=== PATIENT | female | born 1950 | race Caucasian/White ===

== ENCOUNTER 2019-03-12 06:08 | Inpatient (IN) ==
[2019-03-09 12:08] LABS: Basophils # (Auto) 0 K/mcL (0.0-0.3); Basophils % (Auto) 0.5 % (0.0-2.0); Eosinophils # (Auto) 0.1 K/mcL (0.0-0.7); Eosinophils % (Auto) 1.7 % (0.0-7.0); Granulocytes % (Auto) 60.9 % (38.0-78.0); Hematocrit 40.1 % (36.0-48.0); Hemoglobin 12.9 g/dL (12.0-15.0); Lymphocytes # (Auto) 1.6 K/mcL (1.5-4.8); Lymphocytes % (Auto) 30.4 % (15.5-49.0); Mean Cell Volume 87.6 fL (80.0-100.0); Mean Corpuscular HGB Conc 32.2 g/dL (31.0-36.0); Mean Platelet Volume 10.5 fL (7.4-10.4); Monocytes # (Auto) 0.4 K/mcL (0.1-0.9); Monocytes % (Auto) 6.5 % (1.0-12.0); Platelet Count 202 K/mcL (140-440); RBC 4.58 M/mcL (4.00-5.20); Red Cell Distribution Width 14.5 % (11.5-14.5); WBC 5.4 K/mcL (4.5-11.0)
[2019-03-09 12:16] LABS: Estimated Average Glucose(eAG) 117 mg/dL; Hemoglobin A1C 5.7 % HGB (4.0-6.0); Prealbumin 25.8 mg/dl (20-40)
[2019-03-09 12:22] LABS: ALT/SGPT 23 U/l (0-40); AST/SGOT 21 U/l (0-37); Albumin 4.3 gm/dL (3.2-5.2); Albumin/Globulin Ratio 1.3 (1.0-2.3); Alkaline Phosphatase 143 U/L (39-117); Bilirubin,Total 0.2 mg/dL (0.0-1.0); Blood Urea Nitrogen 14 mg/dl (8-23); C-Reactive Protein < 0.3 mg/dl (0.0-0.8); Calcium 9.4 mg/dl (8.6-10.4); Carbon Dioxide 26 mmol/L (22-30); Chloride 104 mmol/L (96-108); Globulin 3.2 gm/dL (2.2-3.7); Glomerular Filtration Rate 94; Glucose 108 mg/dL (70-105); Potassium 4.4 mmol/L (3.3-5.1); Sodium 140 mmol/L (133-145); Thyroid Stimulating Hormone 2.06 uIU/ml (0.27-5.01)
[~2019-03-12 06:08] MED LIST: BACITRACIN IR SCH; CLINDAMYCIN IR SCH; GENTAMICIN SULFATE IR SCH; VANCOMYCIN 1,000 MG in 0.9 % SODIUM CHLORIDE 250 ML IV SCH; [UNRECOGNIZED DRUG - OTHER] IR SCH; cefTRIAXone 1 GM VIAL IV SCH
[2019-03-12] MEDS ORDERED: LIDOCAINE W/EPI 1% 20 ML VIAL IJ ONE (07:21)
[2019-03-12] MEDS ORDERED: BUPIVACAINE 0.25% 50 ML VIAL IJ ONE (07:21)
[2019-03-12] MEDS ORDERED: NALOXONE HCL 0.4 MG/ML VIAL IV PRN (07:23)
[2019-03-12] MEDS ORDERED: PROMETHAZINE 25 MG/ML VIAL IV PRN (07:23)
[2019-03-12] MEDS ORDERED: diphenhydrAMINE 50 MG/ML VIAL IV PRN (07:23)
[2019-03-12] MEDS ORDERED: IPRATROPIUM/ALBUTEROL 3 ML AMPUL.NEB NEB PRN ×2 (07:23→16:04)
[2019-03-12] MEDS ORDERED: BENZOCAINE/MENTHOL 1 LOZENGE PO PRN (07:23)
[2019-03-12] MEDS ORDERED: ONDANSETRON 4 MG/2 ML VIAL IV PRN ×2 (07:23→16:04)
[2019-03-12] MEDS ORDERED: ACETAMINOPHEN 1,000 MG/100 ML BOTTLE IV ONE (07:23)
[2019-03-12] MEDS ORDERED: LACTATED RINGERS 250 ML IV PRN (07:23)
[2019-03-12] MEDS ORDERED: FLUMAZENIL 0.1 MG/ML ML IV PRN (07:23)
[2019-03-12] MEDS ORDERED: MEPERIDINE 25 MG/ML SYRINGE IV PRN ×2 (07:23→16:04)
[2019-03-12] MEDS ORDERED: LACTATED RINGERS 1,000 ML IV SCH ×2 (07:30→16:15)
[2019-03-12] MEDS ORDERED: ePHEDrine 50 MG/ML AMPUL IV ONE (07:35)
[2019-03-12] MEDS ORDERED: LIDOCAINE HCL/PF 100 MG/5 ML SYRINGE IV ONE ×2 (07:35→15:45)
[2019-03-12] MEDS ORDERED: DEXAMETHASONE 10 MG/ML VIAL IV ONE (07:35)
[2019-03-12] MEDS ORDERED: MIDAZOLAM 5 MG/5 ML VIAL IV ONE (07:35)
[2019-03-12] MEDS ORDERED: ONDANSETRON 4 MG/2 ML VIAL IV ONE ×2 (07:35→15:45)
[2019-03-12] MEDS ORDERED: fentaNYL 100 MCG/2 ML VIAL IV ONE ×2 (07:35→15:45)
[2019-03-12] MEDS ORDERED: PROPOFOL 200 MG/20 ML VIAL IV ONE ×2 (07:35→15:45)
[2019-03-12] MEDS: fentaNYL 100 MCG/2 ML VIAL IV PRN ×6 (08:45→17:10)
[2019-03-12] MEDS ORDERED: oxyCODONE/APAP 5/325MG TABLET PO PRN (09:35)
--- NOTE | 2019-03-12 10:55 | Brief Operative Note ---
Date of procedure: 03/12/19 Pre-op diagnosis: Non healing wound. Right Thigh h/o Melanoma Post-op diagnosis: same Procedure: WIDE EXCISION. Open Packing. Grafts/Implants: No Anesthesia: GLMA Findings: Wound Dimension 15 x 8 x 2.5 CM. Wound base has exposed muscle. Entire wound along with underlying and adjacent involved fascia was excised in toto. Separate biopsies taken from 12, 6, 3 and 9 O'clock positions, AWAIT Final Pathology report. Complications: none Surgeon: Manuel Cyr Estimated blood loss (cc): 20 Specimens Removed/Pathology: other Condition: stable Disposition: observation (Will need extended recovery for observation for bleedi ng and pain management / control.)
[2019-03-12] MEDS ORDERED: KETOROLAC 15 MG/ML VIAL IV PRN ×2 (11:20→20:00)
[2019-03-12] MEDS ORDERED: GLYCOPYRROLATE 0.2 MG/ML VIAL IV ONE (15:45)
[2019-03-12] MEDS ORDERED: MIDAZOLAM 2 MG/2 ML VIAL IV ONE (15:45)
[2019-03-12] MEDS ORDERED: KETAMINE 100 MG/ML ML IV ONE (15:45)
[2019-03-12] MEDS ORDERED: PHENYLEPHRINE 10 MG/ML VIAL IV ONE (15:45)
[2019-03-12] MEDS ORDERED: LORazepam 2 MG/ML VIAL IV PRN (16:04)
--- NOTE | 2019-03-12 16:26 | Brief Operative Note ---
Date of procedure: 03/12/19 Pre-op diagnosis: Post operative bleeding Post-op diagnosis: same Procedure: Wound exploration and suture ligation of bleeders x 2 Grafts/Implants: No Anesthesia: GLMA Findings: Post operative bleeding from wound bed. Arterial bleeding after clots were washed. Suture ligated with 2-0 Vicryl figure of 8 ties x 2, Wound bed covered with Xeroform gauze AND stapled to wound edges. Complications Description: 03/12/19 16:26 Post operative arterial bleeding from wound bed. Reactive bleed from collapsed, retracted bleeders. Surgeon: Manuel Cyr Estimated blood loss (cc): 30 Specimens Removed/Pathology: none sent Condition: stable Disposition: PACU
[2019-03-12 16:58] LABS: POC Blood Urea Nitrogen 11 mg/dl (8-23); POC CO2 23 mmol/L (22-30); POC Calcium, Ionized 1.09 mmol/L (1.16-1.32); POC Chloride 106 mmol/L (96-108); POC Creatinine 0.6 mg/dl (0.6-1.1); POC Glucose, Random 167 mg/dL (70-105); POC Potassium 4.5 mmol/L (3.3-5.1); POC Sodium 138 mmol/L (133-145)
[2019-03-12] MEDS: oxyCODONE/APAP 5/325MG TABLET PO PRN ×3 (18:11→22:59)
[2019-03-12] MEDS ORDERED: ZOLPIDEM 5 MG TABLET PO PRN ×2 (21:00)
[2019-03-12] MEDS: MEPERIDINE 25 MG/ML SYRINGE IV PRN (21:25)
[2019-03-13] MEDS: oxyCODONE/APAP 5/325MG TABLET PO PRN ×5 (03:08→22:50)
[2019-03-13] MEDS ORDERED: CALCIUM CARBONATE 500 MG TAB.CHEW CHEWED PRN (06:52)
[2019-03-13] MEDS ORDERED: ASPIRIN 81 MG TAB.CHEW CHEWED ONE (08:22)
[2019-03-13] MEDS ORDERED: ASPIRIN 81 MG TAB.CHEW ONE (08:26)
[2019-03-13] MEDS ORDERED: NITROGLYCERIN 0.4 MG TAB.SUBL SL ONE (08:26)
[2019-03-13] MEDS ORDERED: 0.9 % SODIUM CHLORIDE 1,000 ML IV SCH ×2 (08:30→11:31)
[2019-03-13] MEDS: NITROGLYCERIN 0.4 MG TAB.SUBL SL PRN ×2 (08:33→09:40)
[2019-03-13] MEDS: MEPERIDINE 25 MG/ML SYRINGE IV PRN (08:33)
[2019-03-13] MEDS ORDERED: ONDANSETRON 4 MG/2 ML VIAL IV PRN ×2 (08:40→11:31)
--- NOTE | 2019-03-13 08:42 | Operative Note ---
DATE OF OPERATION: 03/12/2019 PREOPERATIVE DIAGNOSES: Nonhealing wound, right thigh. Patient with history of malignant melanoma. Past open biopsy in an outside facility. POSTOPERATIVE DIAGNOSES: Nonhealing wound, right thigh. Patient with history of malignant melanoma. Past open biopsy in an outside facility. OPERATION: Wide excision. Open packing of the wound. SURGEON: Manuel Cyr M.D. WOUND DIMENSIONS: 15 x 8 x 2.5 cm. Wound base has exposed muscle. FINDINGS: This biopsy site was at the tip of a large mass, approximately 2.5 to 3 cm, which was densely adherent to the underlying fascia and muscle. It was part organized blood clots and dark black spot suspicious of malignant melanoma. There were additional satellite areas also at 12, 6, 9 and 3 o'clock. ANESTHESIA: General laryngeal mask airway. ESTIMATED BLOOD LOSS: About 20 mL. PROCEDURE NOTE: After obtaining informed consent, patient was taken to the operating room and anesthetized uneventfully in supine position using laryngeal mask airway. Intravenous antibiotics given. Timeout called. Right lower extremity was widely cleaned, prepped and draped in the standard fashion. Preoperative photographs taken. Local anesthetic 0.25% Marcaine with epinephrine was injected widely around and under the area in question. Elliptical incision was made. Sharp dissection was carried out through the skin and subcutaneous tissues. A marking suture was placed at 12 o'clock to orient the pathologist with the specimen. Sharp dissection was carried out with cutting electrocoagulation Bovie from the skin down to the underlying viable deep fascia. The entire mass was dissected from the underlying fascia from this point onwards with electrocoagulation Bovie or Lanier scissors. Care was taken to leave the base of the mass attached to the fascia and muscle, and this dissection was carried out with scissors. Hemostasis was achieved with electrocoagulation Bovie and marking sutures were placed approximating the muscle fascia and the overlying skin at four corners. Hemostasis appeared to be satisfactory. We placed a large Xeroform gauze and reinforced this with a bolster gauze pieces. This was retained in place with Kerlix bandage, Coban and Mike bandages respectively. Estimated blood loss was about 20 mL. Count of swabs, instruments and needles was reported to be correct. She recovered from anesthesia uneventfully. Final pathology report is awaited. Intraoperatively, I discussed the findings with the pathologist. It was felt that given the diagnosis of malignant melanoma, it is best to wait for the permanent section reports rather than frozen section. The patient awakened from anesthesia and was taken to RR in stable condition. VD:jose Job ID: [id number] Doc ID: [id number] Manuel Cyr MD
[2019-03-13] MEDS ORDERED: ONDANSETRON 4 MG/2 ML VIAL ONE (08:44)
--- NOTE | 2019-03-13 08:59 | Operative Note ---
DATE OF OPERATION: 03/12/2019 PREOPERATIVE DIAGNOSIS: Postoperative bleeding from the wound bed. Not responding to change of dressings and reinforcing base of the wound with additional ABD pad and compression. POSTOPERATIVE DIAGNOSIS: Postoperative bleeding from the wound bed. Not responding to or change of dressings and reinforcing base of the wound with additional ABD pad and compression. OPERATION: Reexploration of the wound. Two areas of arterial bleeding under the clots were identified and suture ligated with [id number] ties x2. SURGEON: Manuel Cyr M.D. ANESTHESIA: General laryngeal mask. ANESTHESIOLOGIST: Ramona Mayes M.D. PROCEDURE: This patient had undergone excision of a biopsy site mass adherent to the fascia. The patient has a history of malignant melanoma. Postoperatively, she had bleeding which could not be controlled with a change of dressing and reinforcement with additional pressure dressings. After obtaining informed consent and discussion of the indication, she was taken to the operating room and anesthetized uneventfully in supine position using laryngeal mask airway. Timeout was called. The previous dressings were taken down. The area was widely cleaned, prepped and draped in the standard fashion. Careful irrigation of the wound bed was carried out multiple times with normal saline. The clots were washed away. There were two areas of retracted small arteries under these clots which appeared to be the source of bleeding. Bright red bleeding was coming from these areas. These were suture ligated with [id number] 2-0 Vicryl x2. This controlled the bleeding. The wound was cleaned again and redressed with Xeroform gauze stapled against the edges with casandra and reinforced with bolster packing, ABD gauze, Kerlix bandage, Coban and Mike wrap respectively. Blood loss was about 30 mL. Count of swabs, instruments and needles was reported to be correct. VD:jose Job ID: [id number] Doc ID: [id number] Manuel Cyr MD
[2019-03-13 09:16] LABS: Basophils # (Auto) 0 K/mcL (0.0-0.3); Basophils % (Auto) 0.2 % (0.0-2.0); Eosinophils # (Auto) 0 K/mcL (0.0-0.7); Eosinophils % (Auto) 0.2 % (0.0-7.0); Granulocytes % (Auto) 67.1 % (38.0-78.0); Hematocrit 32.1 % (36.0-48.0); Hemoglobin 10.3 g/dL (12.0-15.0); Lymphocytes # (Auto) 1.8 K/mcL (1.5-4.8); Lymphocytes % (Auto) 25.1 % (15.5-49.0); Mean Corpuscular HGB Conc 32.2 g/dL (31.0-36.0); Mean Platelet Volume 9.3 fL (7.4-10.4); Monocytes # (Auto) 0.5 K/mcL (0.1-0.9); Monocytes % (Auto) 7.4 % (1.0-12.0); Platelet Count 186 K/mcL (140-440); RBC 3.68 M/mcL (4.00-5.20); Red Cell Distribution Width 14.4 % (11.5-14.5); WBC 7.2 K/mcL (4.5-11.0)
[2019-03-13 09:43] LABS: ALT/SGPT 19 U/l (0-40); AST/SGOT 17 U/l (0-37); Albumin 3.5 gm/dL (3.2-5.2); Albumin/Globulin Ratio 1.7 (1.0-2.3); Alkaline Phosphatase 107 U/L (39-117); Bilirubin,Total 0.2 mg/dL (0.0-1.0); Blood Urea Nitrogen 12 mg/dl (8-23); Calcium 8.5 mg/dl (8.6-10.4); Carbon Dioxide 24 mmol/L (22-30); Chloride 103 mmol/L (96-108); Creatine Kinase 79 IU/L (24-170); Creatine Kinase MB 1.3 ng/ml (0-2.9); Globulin 2.1 gm/dL (2.2-3.7); Glomerular Filtration Rate 94; Glucose 121 mg/dL (70-105); Potassium 4.3 mmol/L (3.3-5.1); Sodium 138 mmol/L (133-145)
[2019-03-13] MEDS ORDERED: PHENobarb/HYOSCY/ATROPINE/SCOP 1 DOSE BOTTLE PO ONE (10:01)
[2019-03-13] MEDS ORDERED: IOPAMIDOL 100 ML BOTTLE IV ONE (10:06)
--- NOTE | 2019-03-13 11:00 | Internal Med History&Physical ---
Medical - H&P: HPI Patient information: Note initiated : 03/13/19 at 10:54 am Service Date, if different from initiated Date: [] Patient: Karla Mcconnell a 69 y/o F admitted on 03/13/19 for Wide Excision Right Anterior Thigh Wound. Chief Complaint: [] History of present illness: Ms. Mcconnell is a 69 year old F Who presented for elective wide excision of a nonhealing wound history of melanoma. On the a wide excision was made and biopsies were obtained. She did have some postoperative bleeding and wound was explored again and wound was washed out and dressings placed. States she had described a chest pressure and code white was obtained. EKG and first troponin unremarkable. She received several nitros with relief in pain however pain has returned. See the note per nurse. Patient described discomfort as elephant sitting on her chest but denied pain. I will speak with the patient states that she was just laying in her bed and when the nurse came into check vitals patient said she felt like she had elep hant sitting on her chest. Symptoms have significantly subsided but she feels never quite gone away but very minimal at this time. Again she describes a pressure but not painful and it encompasses the entire anterior chest and does not radiate. She does states little worse with a deep breath or cough. Denies anything making it worse or better. Denies any change in symptoms with position. Does have history of pyrosis but she says it does not feel like that. She did have some chest pain several years ago and was worked up by her primary care provider Dr. Dubose which was unremarkable. 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 Regarding her cancer. She had a first biopsy in December which showed melanoma and then she had excision in the office by subsequently later she developed infection and was given some oral antibiotics from the ED. And then saw Dr. garvin in the cancer center which eventually led to her getting the surgical excision here. Review of Systems: She does have some headaches and some chills. Denies nausea/vomiting/abdominal pain/cough/dyspnea/diarrhea. Remaining 10 point review of system reviewed negative Medical - H&P: H Medical history: Medical History (Last Updated 02/05/19 @ 21:27 by Manoj Dumont DO) Hypertension/hyperlipidemia GERD Cervical cancer Past surgical history: Hysterectomy from cervical cancer Bilateral eye lens surgery Cholecystectomy Carpal tunnel release Social she: Patient quit smoking 17 years ago drinks alcohol socially lives at home with her Medical - H&P: Meds Home Medications Medication Instructions Recorded Confirmed Type Atorvastatin [Lipitor] 10 mg PO HS 03/02/19 03/09/19 History Famotidine [Pepcid] 20 mg PO BID 03/02/19 03/09/19 History Losartan [Cozaar] 50 mg PO BID 03/02/19 03/12/19 History Allergies Allergy/AdvReac Type Severity Reaction Status Date / Time No Known Drug Allergies Allergy Verified 03/09/19 10:13 Medical - H&P: Exam - Constitutional Vitals: Temp Pulse Resp BP Pulse Ox 97.3 F 71 18 115/61 96 03/13/19 08:15 03/13/19 09:41 03/13/19 09:41 03/13/19 09:41 03/13/19 09:41 Exam: General: Alert, Awake, No acute Distress Eyes/N/T: EOMI, PERRL Head/Neck: neck supple, normocephalic atraumatic CV: RRR, 1/6SM, normal s1/s2 Pulm: Clear b/l, no wheezing/rhonchi/rales Abd: soft, nontender, +BS x4 Ext: no clubbing/cyanosis/edema Neuro: Alert, no focal deficits, moves all extremities, Skin: warm/dry Medical - H&P: Reslt - Labs CBC & Chem 7: 03/13/19 08:20 03/13/19 08:20 Labs: Short CBC 03/13/19 Range/Units 08:20 WBC 7.2 (4.5-11.0) K/mcL Hgb 10.3 L (12.0-15.0) g/dL Hct 32.1 L (36.0-48.0) % Plt Count 186 (140-440) K/mcL BMP 03/13/19 08:20 Sodium 138 Potassium 4.3 Chloride 103 Carbon Dioxide 24 BUN 12 Creatinine 0.6 Glucose 121 H Calcium 8.5 L Cardiac Enzymes 03/13/19 03/13/19 Range/Units 08:20 08:20 Total Creatine Kinase 79 (24-170) IU/L CK-MB (CK-2) 1.3 (0-2.9) ng/ml Troponin T < 0.01 (0-0.03) ng/ml Liver Function 03/13/19 Range/Units 08:20 Total Bilirubin 0.2 (0.0-1.0) mg/dL AST 17 (0-37) U/l ALT 19 (0-40) U/l Alkaline Phosphatase 107 (39-117) U/L Albumin 3.5 (3.2-5.2) gm/dL Medical - H&P: A/P - Narrative A/P Narrative: A: *Chest pressure: suspected GI -EKG remarkable, -trop x1 neg *Status post wide excision of skin lesion with history of melanoma *HTN/HLD: *GERD: * P: -tele monitorin -serial trop -GI cocktail -restart home pepcid -cont home meds -ppx: SCD
[2019-03-13] MEDS ORDERED: POLYETHYLENE GLYCOL 3350 17 GM PACKET PO PRN (11:31)
[2019-03-13] MEDS ORDERED: MAGNESIUM SULFATE 2 GM/50 ML BAG IV PRN (11:31)
[2019-03-13] MEDS ORDERED: LACTULOSE 20 GM/30 ML ORAL.SOL PO PRN (11:31)
[2019-03-13] MEDS ORDERED: MAG HYDROX/AL HYDROX/SIMETH 30 ML ORAL.SUSP PO PRN (11:31)
[2019-03-13] MEDS ORDERED: POTASSIUM CHLORIDE 40 MEQ in DEXTROSE 5% IN WATER 500 ML IV PRN (11:31)
[2019-03-13] MEDS ORDERED: IPRATROPIUM/ALBUTEROL 3 ML AMPUL.NEB NEB PRN (11:31)
[2019-03-13] MEDS ORDERED: POTASSIUM CHLORIDE 20 MEQ TABLET PO PRN ×2 (11:31)
[2019-03-13] MEDS ORDERED: ZOLPIDEM 5 MG TABLET PO PRN (11:31)
[2019-03-13] MEDS ORDERED: NITROGLYCERIN 0.4 MG TAB.SUBL SL PRN (11:31)
[2019-03-13] MEDS ORDERED: SENNOSIDES 1 TABLET PO PRN (11:31)
--- NOTE | 2019-03-13 11:35 | XRay Report ---
CLINICAL INFORMATION: chest pressure COMPARISON: 09/13/2016 FINDINGS: Heart size, mediastinum and pulmonary vessels are normal. There is subsegmental atelectasis in the mid lungs. No effusions. IMPRESSION: Subsegmental atelectasis in mid lungs. Interpreted and Authenticated by: Vineet Peck 03/13/19
[2019-03-13] MEDS: FAMOTIDINE 20 MG TABLET PO SCH ×2 (12:00→21:24)
[2019-03-13] MEDS: 0.9 % SODIUM CHLORIDE 10 ML SYRINGE IV SCH ×2 (14:44→21:24)
[2019-03-13] MEDS ORDERED: PANTOPRAZOLE 40 MG VIAL IV ONE (17:26)
--- NOTE | 2019-03-13 17:27 | General Surgery Progress Note ---
Subjective Patient reports: still having pain, other (Patient c/o chest pain this morning with a sense of chest tightness. Code white was called.) Narrative: Note initiated : 03/13/19 at 5:24 pm Service Date, if different from initiated Date: [] Patient: Karla Mcconnell 69 y/o F admitted on 03/13/19 for Wide Excision Right Anterior Thigh Wound. Chief Complaint: [] Objective Temp Pulse Resp BP Pulse Ox 97.8 F 65 14 104/68 94 03/13/19 16:27 03/13/19 15:31 03/13/19 16:27 03/13/19 16:27 03/13/19 16:27 AVSS. Anxious. NOT diaphoretic. Right thigh dressing CDI, Distal extremity PWD. Chest exam was unremarkable. EKG : NSR. Initial cardiac enzymes wer NEG, Some relief with s/l Nitro and mylanta. Patient felt better. later c/o tightness of chest. - Additional Data Intake & Output - Last 24 hours: Intake & Output 03/11/19 03/12/19 03/13/19 03/14/19 05:59 05:59 05:59 05:59 Intake Total 3350 Output Total 575 25 Balance 2775 -25 Weight 155 lb 3.2 oz 155 lb 3.2 oz - Labs 03/13/19 08:20 03/13/19 08:20 Diabetes panel 03/13/19 Range/Units 08:20 Sodium 138 (133-145) mmol/L Potassium 4.3 (3.3-5.1) mmol/L Chloride 103 (96-108) mmol/L Carbon Dioxide 24 (22-30) mmol/L BUN 12 (8-23) mg/dl Creatinine 0.6 (0.6-1.1) mg/dl Glucose 121 H (70-105) mg/dL Calcium 8.5 L (8.6-10.4) mg/dl AST 17 (0-37) U/l ALT 19 (0-40) U/l Alkaline Phosphatase 107 (39-117) U/L Total Protein 5.6 L (5.9-8.4) gm/dL Albumin 3.5 (3.2-5.2) gm/dL Calcium panel 03/13/19 Range/Units 08:20 Calcium 8.5 L (8.6-10.4) mg/dl Albumin 3.5 (3.2-5.2) gm/dL Pituitary panel 03/13/19 Range/Units 08:20 Sodium 138 (133-145) mmol/L Potassium 4.3 (3.3-5.1) mmol/L Chloride 103 (96-108) mmol/L Carbon Dioxide 24 (22-30) mmol/L BUN 12 (8-23) mg/dl Creatinine 0.6 (0.6-1.1) mg/dl Glucose 121 H (70-105) mg/dL Calcium 8.5 L (8.6-10.4) mg/dl Adrenal panel 03/13/19 Range/Units 08:20 Sodium 138 (133-145) mmol/L Potassium 4.3 (3.3-5.1) mmol/L Chloride 103 (96-108) mmol/L Carbon Dioxide 24 (22-30) mmol/L BUN 12 (8-23) mg/dl Creatinine 0.6 (0.6-1.1) mg/dl Glucose 121 H (70-105) mg/dL Calcium 8.5 L (8.6-10.4) mg/dl Total Bilirubin 0.2 (0.0-1.0) mg/dL AST 17 (0-37) U/l ALT 19 (0-40) U/l Alkaline Phosphatase 107 (39-117) U/L Total Protein 5.6 L (5.9-8.4) gm/dL Albumin 3.5 (3.2-5.2) gm/dL Assessment and Plan - Narrative A/P Narrative: Assessment: No further bleeding since reexploration last night. CHEST PAIN. Evaluation and treatment in progress. Plan: D/C Patient from Extended recovery status AND Change Status to INPATIENT under care of Hospitalist Physician. I am following patient from wound care point of view. - Time Spent With Patient Total time spent is greater than 50% in coordination of care (as documented) at patient's floor/unit and/or counseling patient: Greater than 35 minutes (Saw patient several times during the day. Met with family members multiple times.)
[2019-03-13] MEDS: PANTOPRAZOLE 40 MG VIAL IV SCH (17:36)
[2019-03-13 18:19] LABS: Creatine Kinase MB 1.2 ng/ml (0-2.9); Myoglobin 25 ng/ml (25-58)
--- NOTE | 2019-03-13 18:21 | Cat Scan Report ---
CLINICAL INFORMATION: Chest pain COMPARISON: Noncontrast chest CT less than three weeks (02/23/2019) TECHNIQUE: 80 cc of Isovue-300 were injected intravenously. Using SmartPrep to maximize pulmonary artery opacification, 2.5 mm helical slices were obtained from the lung apices through the lung bases. Following reconstruction, 2.5 mm sagittal, coronal, and axial reformations were processed. The exam was reviewed at mediastinal, lung, and bone windows. The exam was performed using radiation dose optimization techniques including, but not limited to, automated exposure control, adjustment of the mA and/or kV according to patient size and use of iterative reconstruction technique. FINDINGS: Mediastinal windows show the pulmonary arteries are well opacified without evidence of embolus. Thoracic aorta is normal diameter demonstrating mild diffuse atherosclerotic disease.. There are no abnormally enlarged lymph nodes in the mediastinal hilar or axillary regions. Heart is normal in size with minimal calcific/fibrotic atherosclerotic plaque in the visualized coronary arteries. Esophagus is unremarkable. Thyroid is normal. Pulmonary parenchymal windows show moderate patchy infiltrates throughout both lower lobes, right middle lobe and the posterior upper lobes which are new from the CT less than three weeks prior. Findings suspicious for aspiration pneumonia. There are no effusions. The 4 mm nodule in the lateral basilar segment of the left lower lobe, described on recent CT, is no longer apparent.. Bones and soft tissues of the chest wall are normal IMPRESSION: 1. No evidence of pulmonary embolus - pulmonary arteries are normal. 2. New moderate patchy infiltrates throughout both lower lobes with smaller patchy infiltrates in the posterior upper, right middle lobe and lingula. There is suspicious for aspiration pneumonia. 3. 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
[2019-03-13] MEDS ORDERED: ATORVASTATIN 20 MG TABLET PO SCH (21:00)
[2019-03-13] MEDS: CALCIUM CARBONATE 500 MG TAB.CHEW CHEWED PRN (21:08)
[2019-03-13] MEDS ORDERED: BENZOCAINE/MENTHOL 1 LOZENGE PO PRN (21:20)
[2019-03-13] MEDS: PIPERACILLIN SODIUM/TAZOBACTAM 3.375 GM in DEXTROSE 5% IN WATER 50 ML IV SCH (21:24)
[2019-03-13] MEDS: DOCUSATE SODIUM 100 MG CAPSULE PO SCH (21:24)
[2019-03-13] MEDS ORDERED: BENZOCAINE/MENTHOL 1 LOZENGE PO ONE (21:25)
[2019-03-13] MEDS: ONDANSETRON 4 MG/2 ML VIAL IV PRN (22:59)
[2019-03-14] MEDS: PIPERACILLIN SODIUM/TAZOBACTAM 3.375 GM in DEXTROSE 5% IN WATER 50 ML IV SCH ×5 (00:53→23:41)
[2019-03-14] MEDS: oxyCODONE/APAP 5/325MG TABLET PO PRN ×3 (03:26→19:29)
[2019-03-14] MEDS: 0.9 % SODIUM CHLORIDE 10 ML SYRINGE IV SCH ×3 (05:54→22:23)
[2019-03-14 06:26] LABS: Basophils # (Auto) 0 K/mcL (0.0-0.3); Basophils % (Auto) 0.4 % (0.0-2.0); Eosinophils # (Auto) 0.1 K/mcL (0.0-0.7); Eosinophils % (Auto) 1.5 % (0.0-7.0); Granulocytes % (Auto) 58.2 % (38.0-78.0); Hemoglobin 10.4 g/dL (12.0-15.0); Lymphocytes % (Auto) 33.8 % (15.5-49.0); Mean Cell Volume 87.8 fL (80.0-100.0); Mean Corpuscular HGB Conc 32.5 g/dL (31.0-36.0); Mean Platelet Volume 10.4 fL (7.4-10.4); Monocytes # (Auto) 0.4 K/mcL (0.1-0.9); Monocytes % (Auto) 6.1 % (1.0-12.0); Platelet Count 168 K/mcL (140-440); RBC 3.64 M/mcL (4.00-5.20); Red Cell Distribution Width 14.6 % (11.5-14.5); WBC 5.8 K/mcL (4.5-11.0)
[2019-03-14 06:38] LABS: ALT/SGPT 19 U/l (0-40); AST/SGOT 18 U/l (0-37); Albumin 3.6 gm/dL (3.2-5.2); Albumin/Globulin Ratio 1.4 (1.0-2.3); Alkaline Phosphatase 106 U/L (39-117); Bilirubin,Direct < 0.2 mg/dL (0.0-0.3); Bilirubin,Total 0.2 mg/dL (0.0-1.0); Blood Urea Nitrogen 13 mg/dl (8-23); Calcium 8.7 mg/dl (8.6-10.4); Carbon Dioxide 26 mmol/L (22-30); Chloride 102 mmol/L (96-108); Gamma Glutamyl Transpeptidase 15 U/L (5-36); Globulin 2.5 gm/dL (2.2-3.7); Glomerular Filtration Rate 90; Glucose 111 mg/dL (70-105); Lactate Dehydrogenase 149 U/L (94-250); Phosphorous 2.9 mg/dL (2.7-4.5); Potassium 4.4 mmol/L (3.3-5.1); Sodium 138 mmol/L (133-145); Triglycerides 97 mg/dl (<150); Uric Acid 3.2 mg/dL (2.5-8.0)
[2019-03-14] MEDS: PANTOPRAZOLE 40 MG VIAL IV SCH ×2 (07:10→17:42)
[2019-03-14] MEDS: ONDANSETRON 4 MG/2 ML VIAL IV PRN ×2 (07:25→13:06)
[2019-03-14] MEDS ORDERED: ASPIRIN 81 MG TAB.CHEW PO SCH (09:00)
[2019-03-14] MEDS ORDERED: LOSARTAN 50 MG TABLET PO SCH (09:00)
[2019-03-14] MEDS: FAMOTIDINE 20 MG TABLET PO SCH ×2 (09:14→21:20)
[2019-03-14] MEDS: DOCUSATE SODIUM 100 MG CAPSULE PO SCH ×2 (09:14→21:19)
[2019-03-14] MEDS: CALCIUM CARBONATE 500 MG TAB.CHEW CHEWED PRN (09:32)
[2019-03-14] MEDS ORDERED: PROMETHAZINE 25 MG/ML VIAL IV PRN ×2 (10:14→11:21)
--- NOTE | 2019-03-14 10:24 | Surgical Pathology Report ---
HISTOLOGY SPECIMEN MICROSCOPIC DIAGNOSIS SPECIMEN A - SKIN, RIGHT ANTERIOR THIGH, EXCISION: -- HEMATOMA WITH ASSOCIATED ACUTE AND CHRONIC INFLAMMATION, GRANULATION TISSUE AND MARKED HEMOSIDERIN DEPOSITION; SEE COMMENT. -- HEMOSIDERIN HIGHLIGHTED BY IRON STAIN (ADEQUATE TECHNICAL CONTROL). -- NO MALIGNANCY IDENTIFIED. SPECIMEN B - SOFT TISSUE, SUBMITTED "DEEP MARGIN 3 O'CLOCK", EXCISION: -- SUBCUTANEOUS SOFT TISSUE WITH FIBROSIS, CHRONIC INFLAMMATION AND HEMOSIDERIN. -- NO MALIGNANCY IDENTIFIED. SPECIMEN C - SOFT TISSUE, SUBMITTED "DEEP MARGIN 6 O'CLOCK", EXCISION: -- SUBCUTANEOUS SOFT TISSUE WITH SPARSE CHRONIC INFLAMMATION AND FIBROSIS. -- NO MALIGNANCY IDENTIFIED. SPECIMEN D - SOFT TISSUE, SUBMITTED "DEEP MARGIN 9 O'CLOCK", EXCISION: -- SUBCUTANEOUS SOFT TISSUE WITH FIBROSIS, CHRONIC INFLAMMATION AND HEMOSIDERIN. -- NO MALIGNANCY IDENTIFIED. SPECIMEN E - SOFT TISSUE, SUBMITTED "DEEP MARGIN 12 O'CLOCK", EXCISION: -- SUBCUTANEOUS SOFT TISSUE WITH FIBROSIS, CHRONIC INFLAMMATION AND HEMOSIDERIN. -- NO MALIGNANCY IDENTIFIED. (DMT:albna) COMMENT: The patient's history of a previously diagnosed melanoma at this site, invasive to a depth of 0.35 mm ([id number]; 12/28/2018) and with negative margins is noted. The current excision specimen has a large dermal and subcutaneous collection of red cells with surrounding acute and chronic inflammation, granulation tissue and abundant hemosiderin deposits. No residual/recurrent melanoma is identified morphologically or by immunohistochemistry. No other malignancy is identified. Additionally submitted margin specimens (Specimens B-E) have similar reactive/inflammatory changes. Overall, the findings are compatible with prior excision site changes associated with a hematoma. MICROSCOPIC DESCRIPTION The following immunohistochemical studies are performed on Block A2: Cell Population: Epithelioid cells with pigment. Pancytokeratin plus: Negative. CD68: Uniformly positive. CD34: Highlights reactive endothelial cells associated with inflammation. Melan-A, SOX-10: Negative. Interpretation: Highlights macrophages and granulation tissue associated with hematoma. No malignant melanoma cells identified. Some of the tests reported here may not have been cleared or approved by the U.[place]. Food and Drug Administration (FDA). However, the FDA has determined that such clearance or approval is not necessary. Pursuant to the requirements of CLIA, this laboratory has established and verified the accuracy and precision of all tests, and additional information about these tests is available upon request. All technical controls are adequate. CLINICAL HISTORY Non-healing right anterior thigh wound. GROSS DESCRIPTION Specimen A: Received in formalin labeled #1 and designated as anterior thigh wound, is a 7.5 x 2.6 x 2.4 cm ellipse of puentes skin. On the skin surface there is a 0.5 x 0.1 x 0.1 cm sunken area which is next to a 0.6 x 0.5 cm pigmented, possibly scabbed area. Subcutaneously there is red-brown possibly hemorrhagic tissue. The margin is inked black. A stitch is present at one end of the specimen; per requisition this is 12 o'clock. The 12-3 border is over-inked blue, the 3-6 border is over-inked orange. Sectioning reveals an approximately 5.6 x 1.2 by up to 1.2 cm cavity filled with viscous red-puentes to clot-like material. Wool Grader sections submitted in four cassettes with the tips in A1 and marketing representative cross sections in A2-A4. Specimen B: Received in formalin labeled #2 and designated 3 o'clock deep margin, are two pink-puentes fragments of tissue. The margin is inked black. The specimens measure 1.9 x 0.9 x 0.5 and 2.3 x 1 x 0.6 cm. Both are serially sectioned with marketing representative sections submitted one cassette. Specimen C: Received in formalin labeled #3 and designated 6 o'clock deep margin, is a 1 x 0.3 x 0.3 cm fragment of sy-puentes fibrous tissue. Totally submitted - one cassette. Specimen D: Received in formalin labeled #4 and designated as deep margin 9 o'clock, is a 2.5 x 0.8 by up to 1 cm sy-puentes fibrous fragment of tissue. Inked black, serially sectioned, totally submitted - one cassette. Specimen E: Received in formalin labeled #5 and designated deep margin 12 o'clock, is a 1.9 x 1.3 x 0.5 cm fibrous pink-puentes tissue fragment. Inked black, serially sectioned, totally submitted - one cassette. (KGW:sln) Electronically Signed by: James Dillard M.D.
--- NOTE | 2019-03-14 10:28 | Internal Med Progress Note ---
Medical - PN: Subj Patient information: Note initiated : 03/14/19 at 10:26 am Service Date, if different from initiated Date: [] Patient: Karla Mcconnell a 69 y/o F admitted on 03/13/19 for Wide Excision Right Anterior Thigh Wound. Chief Complaint: [] Interval history: Ms. Mcconnell is a 69 year old F Who presented for elective wide excision of a nonhealing wound history of melanoma. On the a wide excision was made and biopsies were obtained. She did have some postoperative bleeding and wound was explored again and wound was washed out and dressings placed. States she had described a chest pressure and code white was obtained. EKG and first troponin unremarkable. She received several nitros with relief in pain however pain has returned. See the note per nurse. Patient described discomfort as elephant sitting on her chest but denied pain. I will speak with the patient states that she was just laying in her bed and when the nurse came into check vitals patient said she felt like she had elephant sitting on her chest. Symptoms have significantly subsided but she feels never quite gone away but very minimal at this time. Again she describes a pressure but not painful and it encompasses the entire a nterior chest and does not radiate. She does states little worse with a deep breath or cough. Denies anything making it worse or better. Denies any change in symptoms with position. Does have history of pyrosis but she says it does not feel like that. She did have some chest pain several years ago and was worked up by her primary care provider Dr. Dubose which was unremarkable. 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 Regarding her cancer. She had a first biopsy in December which showed melanoma and then she had excision in the office by subsequently later she developed infection and was given some oral antibiotics from the ED. And then saw Dr. garvin in the cancer center which eventually led to her getting the surgical excision here. Patient seen examined, pt has no CP, no events on tele, trop neg CTA done last night shows patient has aspiration pneumonia. STarted on zosyn. BC sent Pt has history of dysphagia,solid foods getting stuck in mid chest, and going down slowly or coming back up, this has been going on for 3 yrs and she has been reluctant to have it checked out. she agrees for evaluation now. Will consult GI for EGD Pertinent ROS: Denies headache, dizziness Denies chest pain, palpitations Denies cough or shortness of breath Denies abdominal pain, prseent nausea, no vomiting. - Constitutional Vitals: Vital Signs Temp Pulse Resp BP Pulse Ox 97.4 F 64 16 128/66 97 03/14/19 07:00 03/14/19 07:00 03/14/19 07:00 03/14/19 07:00 03/14/19 07:00 Period Temp Pulse Resp BP Sys/Garcia Pulse Ox Last 24 Hr 97.0 F-98.2 F 61-74 14-20 104-132/53-90 92-98 Intake and Output 03/13/19 03/14/19 03/14/19 21:59 05:59 13:59 Intake Total 50 450 50 Output Total 500 Balance 50 -50 50 Weight 159 lb Intake & Output: Intake & Output 03/13/19 03/14/19 03/14/19 21:59 05:59 13:59 Intake Total 50 450 50 Output Total 500 Balance 50 -50 50 Weight 159 lb Intake: IV 50 50 50 Zosyn 3.375 gm In Dextrose 5% 50 50 50 in Water 50 ml @ 100 mls/hr IV Q6H [facility] Rx#:[id number] Oral 400 Output: Void Amount 500 Other: Urine Color Dark Yellow Exam: Constitutional; Afebrile, cooperative, alert, not in distress. Respiratory system: Air Entry equal on both sides, No crackles or wheezing, no rhonchi. CVS- Rate rhythm regular, S1,S2 heard, no gallop, no rub. Abdomen- Soft nontender abdomen, no organomegaly, no tenderness, no guarding or rigidity, [employer]IAN- AOOx3, moving all extremities, no gross focal deficit noted. Medical - PN: Obj Da - Labs CBC & Chem 7: 03/14/19 03:24 03/14/19 03:24 Labs: Abnormal Lab Results 03/14/19 03/14/19 03/13/19 03:24 03:24 08:20 RBC 3.64 L Hgb 10.4 L Hct 32.0 L POC Hct RDW 14.6 H Glucose 111 H 121 H POC Glucose Calcium 8.5 L POC WB Ioniz Calcium Total Protein 5.6 L Globulin 2.1 L 03/13/19 03/12/19 08:20 16:48 RBC 3.68 L Hgb 10.3 L Hct 32.1 L POC Hct 35.0 L RDW Glucose POC Glucose 167 H Calcium POC WB Ioniz Calcium 1.09 L Total Protein Globulin Meds: Medications Al Hydrox/Mg Hydrox/Simethicone (Maalox) 30 ml PO Q4-6HP PRN PRN Reason: Dyspepsia Last Admin: 03/13/19 21:06 Dose: 30 ml Documented by: Albuterol/Ipratropium (Duoneb) 3 ml NEB Q4HP PRN PRN Reason: Shortness Of Breath Aspirin (Aspirin) 81 mg PO DAILY [facility] Last Admin: 03/14/19 09:14 Dose: 81 mg Documented by: Atorvastatin Calcium (Lipitor) 10 mg PO HS [facility] Last Admin: 03/13/19 21:24 Dose: 10 mg Documented by: Calcium Carbonate/Glycine (Tums) 1,000 mg CHEWED Q4HP PRN PRN Reason: Dyspepsia Last Admin: 03/14/19 09:32 Dose: 1,000 mg Documented by: Docusate Sodium (Colace) 100 mg PO BID [facility] Last Admin: 03/14/19 09:14 Dose: 100 mg Documented by: Famotidine (Pepcid) 20 mg PO BID [facility] Last Admin: 03/14/19 09:14 Dose: 20 mg Documented by: Sodium Chloride (Sodium Chloride 0.9%) 1,000 mls @ 0 mls/hr IV .Q0M [facility] Potassium Chloride 40 meq/ (Dextrose) 520 mls @ 130 mls/hr IV UD PRN PRN Reason: Potassium < 3 Magnesium Sulfate (Magnesium Sulfate) 2 gm in 50 mls @ 50 mls/hr IV UD PRN PRN Reason: Magnesium </= 1.6 Piperacillin Sod/Tazobactam (Sod 3.375 gm/ Dextrose) 50 mls @ 100 mls/hr IV Q6H [facility]; Protocol Last Infusion: 03/14/19 06:45 Dose: Infused Documented by: Lactulose (Cephulac) 10 gm PO DAILYP PRN PRN Reason: Constipation Losartan Potassium (Cozaar) 50 mg PO BID [facility] Last Admin: 03/14/19 09:14 Dose: 50 mg Documented by: Morphine Sulfate (Morphine) 0 mg IV Q3HP PRN PRN Reason: Pain Last Admin: 03/13/19 18:51 Dose: 2 mg Documented by: Nitroglycerin (Nitrostat) 0.4 mg SL Q5M PRN PRN Reason: Chest Pain Last Admin: 03/13/19 17:17 Dose: 0.4 mg Documented by: Ondansetron HCl (Zofran) 4 mg IV Q6HP PRN PRN Reason: Nausea And Vomiting Last Admin: 03/14/19 07:25 Dose: 4 mg Documented by: Oxycodone/Acetaminophen (Percocet 5-325 Mg) 1 - 2 tab PO Q4HP PRN PRN Reason: PAIN LEVEL 3-6 Last Admin: 03/14/19 09:32 Dose: 2 tab Documented by: Pantoprazole Sodium (Protonix) 40 mg IV BIDAC [facility] Last Admin: 03/14/19 07:10 Dose: 40 mg Documented by: Polyethylene Glycol (Miralax) 17 gm PO DAILYP PRN PRN Reason: Constipation Potassium Chloride (Kdur) 40 meq PO UD PRN PRN Reason: Potssium is 3-3.5 Potassium Chloride (Kdur) 40 meq PO UD PRN PRN Reason: Potassium < 3 Promethazine HCl (Phenergan) 12.5 mg IV Q4HP PRN PRN Reason: Nausea And Vomiting Senna (Senokot) 2 tab PO HSP PRN PRN Reason: Constipation Sodium Chloride (Saline Flush) 10 ml IV Q8 [facility] Last Admin: 03/14/19 05:54 Dose: 10 ml Documented by: Throat Lozenges (Cepacol) 1 lozenge PO PRN PRN PRN Reason: Sore Throat Zolpidem Tartrate (Ambien) 5 mg PO HSP PRN PRN Reason: Insomnia Last Admin: 03/13/19 21:23 Dose: 5 mg Documented by: Medical - PN: A/P - Time Spent With Patient Total time spent is greater than 50% in coordination of care (as documented) at patient's floor/unit and/or counseling patient: - Narrative A/P Narrative: A: *Chest pressure: ekg neg, trop neg *Aspiration pneumonia *acute hypoxic respiratory failure *Status post wide excision of skin lesion with history of melanoma *HTN/HLD: *GERD: P: Patient has chr dysphagia, likely leading to aspiration pneumointis. on IV PPI GI consulted for EGD, pt agreeable for same IV zosyn for aspiration pna oxygen to supplement osat > 90 incentive spirometery, wean off oxygen as tolerated zofran/Phenergan for nausea Wound care following for the wide excision biopsy. DVT hep sq Medical - PN: Qual - VTE Deep Vein Thrombosis/Pulmonary Embolism Present on Admission: No
[2019-03-14] MEDS ORDERED: IPRATROPIUM/ALBUTEROL 3 ML AMPUL.NEB NEB PRN (11:21)
[2019-03-14] MEDS ORDERED: NITROGLYCERIN 0.4 MG TAB.SUBL SL PRN (11:21)
[2019-03-14] MEDS ORDERED: POTASSIUM CHLORIDE 40 MEQ in DEXTROSE 5% IN WATER 500 ML IV PRN (11:21)
[2019-03-14] MEDS ORDERED: POLYETHYLENE GLYCOL 3350 17 GM PACKET PO PRN (11:21)
[2019-03-14] MEDS ORDERED: LACTULOSE 20 GM/30 ML ORAL.SOL PO PRN (11:21)
[2019-03-14] MEDS ORDERED: POTASSIUM CHLORIDE 20 MEQ TABLET PO PRN ×2 (11:21)
[2019-03-14] MEDS ORDERED: BENZOCAINE/MENTHOL 1 LOZENGE PO PRN (11:21)
[2019-03-14] MEDS ORDERED: CALCIUM CARBONATE 500 MG TAB.CHEW CHEWED PRN (11:21)
[2019-03-14] MEDS ORDERED: MAGNESIUM SULFATE 2 GM/50 ML BAG IV PRN (11:21)
[2019-03-14] MEDS ORDERED: 0.9 % SODIUM CHLORIDE 1,000 ML IV SCH (11:21)
[2019-03-14] MEDS ORDERED: MAG HYDROX/AL HYDROX/SIMETH 30 ML ORAL.SUSP PO PRN (11:21)
--- NOTE | 2019-03-14 12:22 | General Surgery Progress Note ---
Subjective Narrative: Note initiated : 03/14/19 at 12:20 pm Service Date, if different from initiated Date: [] Patient: Karla Mcconnell 69 y/o F admitted on 03/14/19 for Wide Excision Right Anterior Thigh Wound. Chief Complaint: [] Patient seen along with Michelle RN, In Patient wound care nurse and with her Jose in the room. Events of yesterday noted. Patient is calm and not anxious at this time. Using IS up to 1500 . Dressings Right thigh CDI. Objective Temp Pulse Resp BP Pulse Ox 97.4 F 67 16 131/71 97 03/14/19 11:00 03/14/19 11:00 03/14/19 11:00 03/14/19 11:00 03/14/19 11:00 AVSS. No changes DHRUV. Dressings Rt. Thigh CDI. CT Chest findings noted. Dysphagia: GI input awaited. FINAL PATHOLOGY: Negative for residual malignancy. Organized hematoma with hemosiderin. Patient has NOT gotten OOB yet. - Additional Data Intake & Output - Last 24 hours: Intake & Output 03/12/19 03/13/19 03/14/19 03/15/19 05:59 05:59 05:59 05:59 Intake Total 3350 850 50 Output Total 575 525 Balance 2775 325 50 Weight 155 lb 3.2 oz 159 lb - Labs 03/14/19 03:24 03/14/19 03:24 Diabetes panel 03/14/19 Range/Units 03:24 Sodium 138 (133-145) mmol/L Potassium 4.4 (3.3-5.1) mmol/L Chloride 102 (96-108) mmol/L Carbon Dioxide 26 (22-30) mmol/L BUN 13 (8-23) mg/dl Creatinine 0.7 (0.6-1.1) mg/dl Glucose 111 H (70-105) mg/dL Calcium 8.7 (8.6-10.4) mg/dl AST 18 (0-37) U/l ALT 19 (0-40) U/l Alkaline Phosphatase 106 (39-117) U/L Total Protein 6.1 (5.9-8.4) gm/dL Albumin 3.6 (3.2-5.2) gm/dL Triglycerides 97 (<150) mg/dl Calcium panel 05/22/19 Range/Units 03:24 Calcium 8.7 (8.6-10.4) mg/dl Phosphorus 2.9 (2.7-4.5) mg/dL Albumin 3.6 (3.2-5.2) gm/dL Pituitary panel 03/14/19 Range/Units 03:24 Sodium 138 (133-145) mmol/L Potassium 4.4 (3.3-5.1) mmol/L Chloride 102 (96-108) mmol/L Carbon Dioxide 26 (22-30) mmol/L BUN 13 (8-23) mg/dl Creatinine 0.7 (0.6-1.1) mg/dl Glucose 111 H (70-105) mg/dL Calcium 8.7 (8.6-10.4) mg/dl Adrenal panel 03/14/19 Range/Units 03:24 Sodium 138 (133-145) mmol/L Potassium 4.4 (3.3-5.1) mmol/L Chloride 102 (96-108) mmol/L Carbon Dioxide 26 (22-30) mmol/L BUN 13 (8-23) mg/dl Creatinine 0.7 (0.6-1.1) mg/dl Glucose 111 H (70-105) mg/dL Calcium 8.7 (8.6-10.4) mg/dl Total Bilirubin 0.2 (0.0-1.0) mg/dL AST 18 (0-37) U/l ALT 19 (0-40) U/l Alkaline Phosphatase 106 (39-117) U/L Total Protein 6.1 (5.9-8.4) gm/dL Albumin 3.6 (3.2-5.2) gm/dL Assessment and Plan - Narrative A/P Narrative: Assessment: s/p Reexploration of Rt thigh for post operative bleeding. Agueda ent STABLE and progressing well. Pneumonia vs Atelectasis. On IV antibiotics and Incentive Spirometry treatment. Able to tolerate PO liquids and soft food. Awaits GI evaluation for dysphagia Plan: OOB and ambulate with crutches or with assistance from physical therapy. Will change dressing tomorrow. Discharge planing when stable from medical point of view. - Time Spent With Patient Total time spent is greater than 50% in coordination of care (as documented) at patient's floor/unit and/or counseling patient: 15 - 24 minutes
[2019-03-14] MEDS ORDERED: LORazepam 2 MG/ML VIAL IV ONE (13:42)
--- NOTE | 2019-03-14 13:51 | Internal Medicine Consult Note ---
Medical - CN: HPI - Data of Consult Patient: new to practice Consult date: 03/14/19 Requesting physician: Cayla Dove Primary Care Provider: Lamar Jenkins Family Provider: Aleksandr Patterson - Consult Narrative Reason for consult: Dysphagia, chest pain History of present illness: Ms. Mcconnell is a 69 year old F hospitalized for excision of a right leg melanoma who developed sudden onset chest pain, feeling like "15 elephants were sitting on my chest". Subsequent CTA showed aspiration pneumonia and she is feeling no pressure today. She has not had similar symptoms in the past. She also complains of a 2 year history of dysphagia to solids, which she often has to regurgitate despite trying to wash the bolus down with water. She denies any history of dysphagia to liquids alone. She was initially scheduled to see us as an outpatient consultation, but did not return calls to reschedule appointment "because medical procedures make me nervous". She has a long history of reflux that is not controlled on famotidine or Prilosec. She goes through a large bottle of TUMS every 3 days. She complains of the reflux of sour juices. There is no prior history of EGD. She denies any history of atopic disease. Weight has gone up and down without any steady decline. She uses ibuprofen 2 x week for leg pain after melanoma excision. I attempted to reassure her about EGD as she has had colonoscopy in the past. In reviewing her family history, her father and paternal uncle had colon cancer at a young age and her sister and daughter had "uterine' cancer at a young age. Her daughter, who was present at the bedside, has had "80 precancerous polyps rem eugenia". As you know, this suggests Patel syndrome. I have recommended the family consider genetic testing. CC: Santosh Jose All systems: reviewed and no additional remarkable complaints except as stated (as above) Medical - CN: PMH Medical history: Hypertension, hyperlipidemia, GERD. cervical CA. Melanoma. Surgical history: Complete hysterectomy, cataracts, cholecystectomy, carpal tunnel release Social history: . 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[employer] Smoking status: Former smoker Alcohol use: occasionally (used to drink daily, now estimates 2 a week, but daughter thinks more frequent use is going on) Medical - CN: Meds Home Medications Medication Instructions Recorded Confirmed Type Atorvastatin [Lipitor] 10 mg PO HS 03/02/19 03/09/19 History Famotidine [Pepcid] 20 mg PO BID 03/02/19 03/09/19 History Losartan [Cozaar] 50 mg PO BID 03/02/19 03/12/19 History Allergies Allergy/AdvReac Type Severity Reaction Status Date / Time No Known Drug Allergies Allergy Verified 03/09/19 10:13 Medical - CN: Exam - Constitutional Vitals: Temp Pulse Resp BP Pulse Ox 97.4 F 67 16 131/71 97 03/14/19 11:00 03/14/19 11:00 03/14/19 11:00 03/14/19 11:00 03/14/19 11:00 General appearance: average body habitus, cooperative, no acute distress - Head Head exam: Present: atraumatic, normal inspection, normocephalic - Eye Eye exam: Present: normal appearance - ENT ENT exam: Present: normal exam - Neck Neck exam: Present: normal inspection. Absent: lymphadenopathy, thyromegaly - Respiratory Respiratory exam: Present: decreased breath sounds - Cardiovascular Cardiovascular exam: Present: normal rate and rhythm - GI/Abdominal GI/Abdominal exam: Present: normal bowel sounds, soft. Absent: hernia, organomegaly, tenderness - Extremities Exam Extremities exam: Present: Foot pink and warm. Absent: pedal edema - Neurological Exam Neurological exam: Present: alert - Psychiatric Psychiatric exam: Present: normal affect, normal mood - Skin Additional comments: dressing to right thigh clean dry and intact Medical - CN: Result - Labs CBC & Chem 7: 03/14/19 03:24 03/14/19 03:24 Labs: Short CBC 03/14/19 Range/Units 03:24 WBC 5.8 (4.5-11.0) K/mcL Hgb 10.4 L (12.0-15.0) g/dL Hct 32.0 L (36.0-48.0) % Plt Count 168 (140-440) K/mcL BMP 03/14/19 03:24 Sodium 138 Potassium 4.4 Chloride 102 Carbon Dioxide 26 BUN 13 Creatinine 0.7 Glucose 111 H Calcium 8.7 Cardiac Enzymes 03/13/19 03/13/19 03/13/19 Range/Units 13:03 17:28 17:28 CK-MB (CK-2) 1.2 (0-2.9) ng/ml Troponin T < 0.01 < 0.01 (0-0.03) ng/ml 03/14/19 Range/Units 03:24 CK-MB (CK-2) (0-2.9) ng/ml Troponin T < 0.01 (0-0.03) ng/ml Liver Function 03/14/19 Range/Units 03:24 Total Bilirubin 0.2 (0.0-1.0) mg/dL Direct Bilirubin < 0.2 (0.0-0.3) mg/dL GGT 15 (5-36) U/L AST 18 (0-37) U/l ALT 19 (0-40) U/l Alkaline Phosphatase 106 (39-117) U/L Albumin 3.6 (3.2-5.2) gm/dL Medical - CN: A/P (1) Dysphagia Status: Acute (2) GERD (gastroesophageal reflux disease) Status: Acute Assessment and plan: I discussed her case with Dr. Zepeda. We will arrange for EGD to further evaluate her dysphagia and refractory reflux. GERD, peptic stricture, esophageal web, ring, etc are on the differential.
[2019-03-14] MEDS ORDERED: KETAMINE HCL 50 MG/ML ML IV PRN (14:44)
[2019-03-14] MEDS ORDERED: PROPOFOL 200 MG/20 ML VIAL IV SCH (14:45)
[2019-03-14] MEDS ORDERED: MIDAZOLAM 2 MG/2 ML VIAL IV SCH (14:45)
[2019-03-14] MEDS ORDERED: PROPOFOL 20 ML IV ONE (15:26)
[2019-03-14] MEDS ORDERED: MIDAZOLAM 2 MG/2 ML VIAL ONE (15:27)
[2019-03-14] MEDS: THIAMINE 100 MG in 0.9 % SODIUM CHLORIDE 50 ML IV SCH (17:46)
--- NOTE | 2019-03-14 20:41 | General Surgery Progress Note ---
Subjective Narrative: Note initiated : 03/14/19 at 8:37 pm Service Date, if different from initiated Date: [] Patient: Karla Mcconnell 69 y/o F admitted on 03/14/19 for Wide Excision Right Anterior Thigh Wound. Chief Complaint: [] Saw patient briefly along with her daughter and RN in room. She is comfortable and resting. Got OOG briefly and walked with walker for few steps. GI input noted. Will await report of EGD. Objective Temp Pulse Resp BP Pulse Ox 98.1 F 64 18 112/58 94 03/14/19 17:38 03/14/19 17:38 03/14/19 17:38 03/14/19 17:38 03/14/19 17:38 - Additional Data Intake & Output - Last 24 hours: Intake & Output 03/12/19 03/13/19 03/14/19 03/15/19 05:59 05:59 05:59 05:59 Intake Total 3350 850 150 Output Total 551 706 0194 Balance 2775 325 -1420 Weight 155 lb 3.2 oz 159 lb - Labs 03/14/19 03:24 03/14/19 03:24 Diabetes panel 03/14/19 Range/Units 03:24 Sodium 138 (133-145) mmol/L Potassium 4.4 (3.3-5.1) mmol/L Chloride 102 (96-108) mmol/L Carbon Dioxide 26 (22-30) mmol/L BUN 13 (8-23) mg/dl Creatinine 0.7 (0.6-1.1) mg/dl Glucose 111 H (70-105) mg/dL Calcium 8.7 (8.6-10.4) mg/dl AST 18 (0-37) U/l ALT 19 (0-40) U/l Alkaline Phosphatase 106 (39-117) U/L Total Protein 6.1 (5.9-8.4) gm/dL Albumin 3.6 (3.2-5.2) gm/dL Triglycerides 97 (<150) mg/dl Calcium panel 03/14/19 Range/Units 03:24 Calcium 8.7 (8.6-10.4) mg/dl Phosphorus 2.9 (2.7-4.5) mg/dL Albumin 3.6 (3.2-5.2) gm/dL Pituitary panel 03/14/19 Range/Units 03:24 Sodium 138 (133-145) mmol/L Potassium 4.4 (3.3-5.1) mmol/L Chloride 102 (96-108) mmol/L Carbon Dioxide 26 (22-30) mmol/L BUN 13 (8-23) mg/dl Creatinine 0.7 (0.6-1.1) mg/dl Glucose 111 H (70-105) mg/dL Calcium 8.7 (8.6-10.4) mg/dl Adrenal panel 03/14/19 Range/Units 03:24 Sodium 138 (133-145) mmol/L Potassium 4.4 (3.3-5.1) mmol/L Chloride 102 (96-108) mmol/L Carbon Dioxide 26 (22-30) mmol/L BUN 13 (8-23) mg/dl Creatinine 0.7 (0.6-1.1) mg/dl Glucose 111 H (70-105) mg/dL Calcium 8.7 (8.6-10.4) mg/dl Total Bilirubin 0.2 (0.0-1.0) mg/dL AST 18 (0-37) U/l ALT 19 (0-40) U/l Alkaline Phosphatase 106 (39-117) U/L Total Protein 6.1 (5.9-8.4) gm/dL Albumin 3.6 (3.2-5.2) gm/dL Assessment and Plan - Narrative A/P Narrative: Assessment: Out of Telemetry and ICU to Med Surg floor. Reviewed GI consult note from [facility] [employer]. Will await EGD input / findings and / or intervention. Plan: Will change post operative dressings tomorrow. - Time Spent With Patient Total time spent is greater than 50% in coordination of care (as documented) at patient's floor/unit and/or counseling patient: less than 15 minutes
[2019-03-14] MEDS ORDERED: ZOLPIDEM 5 MG TABLET PO PRN (21:00)
[2019-03-14] MEDS ORDERED: SENNOSIDES 1 TABLET PO PRN (21:00)
[2019-03-14] MEDS: ATORVASTATIN 20 MG TABLET PO SCH (21:19)
[2019-03-14] MEDS: LOSARTAN 50 MG TABLET PO SCH (21:19)
[2019-03-15] MEDS: oxyCODONE/APAP 5/325MG TABLET PO PRN ×4 (04:09→21:01)
[2019-03-15 05:15] LABS: Basophils # (Auto) 0 K/mcL (0.0-0.3); Basophils % (Auto) 0.3 % (0.0-2.0); Eosinophils # (Auto) 0.1 K/mcL (0.0-0.7); Eosinophils % (Auto) 1.8 % (0.0-7.0); Granulocytes % (Auto) 64.1 % (38.0-78.0); Hematocrit 31.9 % (36.0-48.0); Hemoglobin 10.4 g/dL (12.0-15.0); Lymphocytes # (Auto) 1.5 K/mcL (1.5-4.8); Lymphocytes % (Auto) 27.6 % (15.5-49.0); Mean Cell Volume 87.4 fL (80.0-100.0); Mean Corpuscular HGB Conc 32.4 g/dL (31.0-36.0); Mean Platelet Volume 9.5 fL (7.4-10.4); Monocytes # (Auto) 0.3 K/mcL (0.1-0.9); Monocytes % (Auto) 6.2 % (1.0-12.0); Platelet Count 173 K/mcL (140-440); RBC 3.65 M/mcL (4.00-5.20); Red Cell Distribution Width 14.2 % (11.5-14.5); WBC 5.6 K/mcL (4.5-11.0)
[2019-03-15 05:45] LABS: ALT/SGPT 21 U/l (0-40); AST/SGOT 21 U/l (0-37); Albumin 3.6 gm/dL (3.2-5.2); Albumin/Globulin Ratio 1.5 (1.0-2.3); Alkaline Phosphatase 104 U/L (39-117); Bilirubin,Direct < 0.2 mg/dL (0.0-0.3); Bilirubin,Total 0.2 mg/dL (0.0-1.0); Blood Urea Nitrogen 12 mg/dl (8-23); Calcium 8.7 mg/dl (8.6-10.4); Carbon Dioxide 27 mmol/L (22-30); Chloride 104 mmol/L (96-108); Gamma Glutamyl Transpeptidase 16 U/L (5-36); Globulin 2.4 gm/dL (2.2-3.7); Glomerular Filtration Rate 90; Glucose 106 mg/dL (70-105); Lactate Dehydrogenase 147 U/L (94-250); Phosphorous 3.8 mg/dL (2.7-4.5); Potassium 4.4 mmol/L (3.3-5.1); Sodium 140 mmol/L (133-145); Triglycerides 120 mg/dl (<150); Uric Acid 2.9 mg/dL (2.5-8.0)
[2019-03-15] MEDS: PIPERACILLIN SODIUM/TAZOBACTAM 3.375 GM in DEXTROSE 5% IN WATER 50 ML IV SCH ×4 (05:51→23:48)
[2019-03-15] MEDS: 0.9 % SODIUM CHLORIDE 10 ML SYRINGE IV SCH ×3 (05:52→23:49)
[2019-03-15] MEDS: DOCUSATE SODIUM 100 MG CAPSULE PO SCH ×2 (08:29→21:01)
[2019-03-15] MEDS: FAMOTIDINE 20 MG TABLET PO SCH ×2 (08:29→21:00)
[2019-03-15] MEDS: LOSARTAN 50 MG TABLET PO SCH ×2 (08:31→21:00)
[2019-03-15] MEDS: ASPIRIN 81 MG TAB.CHEW PO SCH (08:31)
[2019-03-15] MEDS: HYDROmorphone 2 MG/ML VIAL IV PRN ×3 (09:37→18:29)
[2019-03-15] MEDS: THIAMINE 100 MG in 0.9 % SODIUM CHLORIDE 50 ML IV SCH (10:00)
[2019-03-15] MEDS: PANTOPRAZOLE 40 MG VIAL IV SCH ×2 (10:05→18:02)
--- NOTE | 2019-03-15 10:24 | EGD Procedure Note ---
EGD Procedure Notes - Procedure Information Patient information: Note initiated : 03/15/19 at 10:20 am Service Date: 03/14/19 Patient: Karla Mcconnell 69 y/o F admitted on 03/14/19 for Wide Excision Right Anterior Thigh Wound. Pre-op diagnosis general: Dysphagia. Post-Op Diagnosis general: Schatzki's ring. Hiatal hernia. GERD. Erosive esophagitis. Inlet patches. Procedure: Esophogogastroduodenoscopy Procedure Narrative: The procedure, alternatives and risks were discussed with the patient and the patient's questions were answered. With endoscopist-administered intravenous sedation, the Olympus video endoscope was introduced into the esophagus. The esophagus, stomach, and duodenum were examined sequentially. Inlet patches were seen in the proximal esophagus. Erosions were seen in the distal esophagus. These were biopsied. At the esophagogastric junction, there was a Schatzki's ring narrowing the lumen significantly. A hiatal hernia was seen. A gastric polyp was seen in the stomach; this was removed with biopsy forceps technique and retrieved for histological examination.The gastric mucosa, antrum, pyloric ring, and duodenum appeared normal. A guidewire was inserted into the scope. The scope was then withdrawn, leaving the guidewire in place. The esophagus was dilated with an [place] bougie 54 Swedish. Assessment: Schatzki's ring. Hiatal hernia. GERD. Erosive esophagitis. Inlet patches.
--- NOTE | 2019-03-15 10:41 | Internal Med Progress Note ---
Medical - PN: Subj Patient information: Note initiated : 03/15/19 at 10:31 am Service Date, if different from initiated Date: [] Patient: Karla Mcconnell a 69 y/o F admitted on 03/14/19 for Wide Excision Right Anterior Thigh Wound. Chief Complaint: [] Interval history: Ms. Mcconnell is a 69 year old F Who presented for elective wide excision of a nonhealing wound history of melanoma. On the a wide excision was made and biopsies were obtained. She did have some postoperative bleeding and wound was explored again and wound was washed out and dressings placed. States she had described a chest pressure and code white was obtained. EKG and first troponin unremarkable. She received several nitros with relief in pain however pain has returned. See the note per nurse. Patient described discomfort as elephant sitting on her chest but denied pain. I will speak with the patient states that she was just laying in her bed and when the nurse came into check vitals patient said she felt like she had elephant sitting on her chest. Symptoms have significantly subsided but she feels never quite gone away but very minimal at this time. Again she describes a pressure but not painful and it encompasses the entire a nterior chest and does not radiate. She does states little worse with a deep breath or cough. Denies anything making it worse or better. Denies any change in symptoms with position. Does have history of pyrosis but she says it does not feel like that. She did have some chest pain several years ago and was worked up by her primary care provider Dr. Dubose which was unremarkable. 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 Regarding her cancer. She had a first biopsy in December which showed melanoma and then she had excision in the office by subsequently later she developed infection and was given some oral antibiotics from the ED. And then saw Dr. garvin in the cancer center which eventually led to her getting the surgical excision here. Patient seen examined, pt has no CP, no events on tele, trop neg CTA done last night shows patient has aspiration pneumonia. STarted on zosyn. BC sent Pt has history of dysphagia,solid foods getting stuck in mid chest, and going down slowly or coming back up, this has been going on for 3 yrs and she has been reluctant to have it checked out. she agrees for evaluation now. Will consult GI for EGD 03/15 Pt seen examined No acute issues reported, s/p EGD, doing well, she still has significant pain in the thigh, unable to bear weight, labs stable, off oxygen. Patient had EGD yesterday EGD report: Inlet patches were seen in the proximal esophagus. Erosions were seen in the distal esophagus. These were biopsied. At the esophagogastric junction, there was a Schatzki's ring narrowing the lumen significantly. A hiatal hernia was seen. A gastric polyp was seen in the stomach; this was removed with biopsy forceps technique and retrieved for histological examination.The gastric mucosa, antrum, pyloric ring, and duodenum appeared normal. A guidewire was inserted into the scope. The scope was then withdrawn, leaving the guidewire in place. The esophagus was dilated with an Indonesian bougie 54 [place]. Pertinent ROS: Denies headache, dizziness Denies chest pain, palpitations Denies cough or shortness of breath Denies abdominal pain, nausea or vomiting. Right thigh pain - Constitutional Vitals: Vital Signs Temp Pulse Resp BP Pulse Ox 99.1 F H 74 16 113/61 97 03/15/19 07:15 03/15/19 07:15 03/15/19 07:15 03/15/19 07:15 03/15/19 10:23 Period Temp Pulse Resp BP Sys/Garcia Pulse Ox Last 24 Hr 97.3 F-99.1 F 64-74 15-18 109-149/52-90 90-99 Intake and Output 03/14/19 03/15/19 03/15/19 21:59 05:59 13:59 Intake Total 101 50 50 Output Total 1170 150 Balance -1069 -100 50 Weight 160 lb 1.6 oz Intake & Output: Intake & Output 03/14/19 03/15/19 03/15/19 21:59 05:59 13:59 Intake Total 101 50 50 Output Total 1170 150 Balance -1069 -100 50 Weight 160 lb 1.6 oz Intake: IV 101 50 50 Zosyn 3.375 gm In Dextrose 5% 50 50 50 in Water 50 ml @ 100 mls/hr IV Q6H [facility] Rx#:[id number] Vitamin B1 100 mg In Sodium 51 Chloride 0.9% 50 ml @ 50 mls/hr IV DAILY [facility] Rx#:[id number] Oral 0 Output: Void Amount 1170 150 Other: Meal Breakfast Percent of Meal Consumed 25% Urine Appearance Clear Clear Urine Color Straw Dark Yellow Urine Odor Normal Exam: Constitutional; Afebrile, cooperative, alert, not in distress. Respiratory system: Air Entry equal on both sides, No crackles or wheezing, no rhonchi. CVS- Rate rhythm regular, S1,S2 heard, no gallop, no rub. DIGITAL SALES DIRECTOR- AOOx3, moving all extremities, no gross focal deficit noted. Medical - PN: Obj Da - Labs CBC & Chem 7: 03/15/19 04:15 03/15/19 04:15 Labs: Abnormal Lab Results 03/15/19 03/15/19 03/14/19 04:15 04:15 03:24 RBC 3.65 L Hgb 10.4 L Hct 31.9 L POC Hct RDW Glucose 106 H 111 H POC Glucose Calcium POC WB Ioniz Calcium Total Protein Globulin 03/14/19 03/13/19 03/13/19 03:24 08:20 08:20 RBC 3.64 L 3.68 L Hgb 10.4 L 10.3 L Hct 32.0 L 32.1 L POC Hct RDW 14.6 H Glucose 121 H POC Glucose Calcium 8.5 L POC WB Ioniz Calcium Total Protein 5.6 L Globulin 2.1 L 03/12/19 16:48 RBC Hgb Hct POC Hct 35.0 L RDW Glucose POC Glucose 167 H Calcium POC WB Ioniz Calcium 1.09 L Total Protein Globulin Meds: Medications Al Hydrox/Mg Hydrox/Simethicone (Maalox) 30 ml PO Q4-6HP PRN PRN Reason: Dyspepsia Albuterol/Ipratropium (Duoneb) 3 ml NEB Q4HP PRN PRN Reason: Shortness Of Breath Aspirin (Aspirin) 81 mg PO DAILY [facility] Last Admin: 03/15/19 08:31 Dose: 81 mg Documented by: Atorvastatin Calcium (Lipitor) 10 mg PO [facility] Last Admin: 03/14/19 21:19 Dose: 10 mg Documented by: Calcium Carbonate/Glycine (Tums) 1,000 mg CHEWED Q4HP PRN PRN Reason: Dyspepsia Docusate Sodium (Colace) 100 mg PO BID [facility] Last Admin: 03/15/19 08:29 Dose: 100 mg Documented by: Famotidine (Pepcid) 20 mg PO BID [facility] Last Admin: 03/15/19 08:29 Dose: 20 mg Documented by: Heparin Sodium (Porcine) (Heparin) 5,000 unit SQ Q12 [facility] Hydromorphone HCl (Dilaudid) 1 mg IV Q2HP PRN PRN Reason: PAIN LEVEL > 6 Last Admin: 03/15/19 09:37 Dose: 1 mg Documented by: Potassium Chloride 40 meq/ (Dextrose) 520 mls @ 130 mls/hr IV UD PRN PRN Reason: Potassium < 3 Magnesium Sulfate (Magnesium Sulfate) 2 gm in 50 mls @ 50 mls/hr IV UD PRN PRN Reason: Magnesium </= 1.6 Sodium Chloride (Sodium Chloride 0.9%) 1,000 mls @ 0 mls/hr IV .Q0M [facility] Piperacillin Sod/Tazobactam (Sod 3.375 gm/ Dextrose) 50 mls @ 100 mls/hr IV Q6H [facility]; Protocol Last Infusion: 03/15/19 06:46 Dose: Infused Documented by: Thiamine HCl 100 mg/ Sodium (Chloride) 51 mls @ 50 mls/hr IV DAILY [facility] Stop: 03/16/19 10:02 Last Infusion: 03/14/19 19:00 Dose: Infused Documented by: Lactulose (Cephulac) 10 gm PO DAILYP PRN PRN Reason: Constipation Losartan Potassium (Cozaar) 50 mg PO BID [facility] Last Admin: 03/15/19 08:31 Dose: 50 mg Documented by: Nitroglycerin (Nitrostat) 0.4 mg SL Q5M PRN PRN Reason: Chest Pain Ondansetron HCl (Zofran) 4 mg IV Q6HP PRN PRN Reason: Nausea And Vomiting Last Admin: 03/14/19 13:06 Dose: 4 mg Documented by: Oxycodone/Acetaminophen (Percocet 5-325 Mg) 1 - 2 tab PO Q4HP PRN PRN Reason: PAIN LEVEL 3-6 Last Admin: 03/15/19 08:29 Dose: 1 tab Documented by: [facility]ole [facility] Last Admin: 03/15/19 10:05 Dose: 40 mg Documented by: Polyethylene Glycol (Miralax) 17 gm PO DAILYP PRN PRN Reason: Constipation Potassium Chloride (Kdur) 40 meq PO UD PRN PRN Reason: Potssium is 3-3.5 Potassium Chloride (Kdur) 40 meq PO UD PRN PRN Reason: Potassium < 3 Promethazine HCl (Phenergan) 12.5 mg IV Q4HP PRN PRN Reason: Nausea And Vomiting Senna (Senokot) 2 tab PO HSP PRN PRN Reason: Constipation Sodium Chloride (Saline Flush) 10 ml IV Q8 [facility] Last Admin: 03/15/19 05:52 Dose: 10 ml Documented by: Throat Lozenges (Cepacol) 1 lozenge PO PRN PRN PRN Reason: Sore Throat Zolpidem Tartrate (Ambien) 5 mg PO HSP PRN PRN Reason: Insomnia Medical - PN: A/P - Time Spent With Patient Total time spent is greater than 50% in coordination of care (as documented) at patient's floor/unit and/or counseling patient: - Narrative A/P Narrative: A: *Chest pressure: ekg neg, trop neg *Aspiration pneumonia *acute hypoxic respiratory failure, resolved. *Status post wide excision of skin lesion with history of melanoma *HTN/HLD: *GERD: P: Patient has chr dysphagia, likely leading to aspiration pneumointis. on IV PPI GI consulted for EGD done, esophageal dilation done. IV zosyn for aspiration pna oxygen to supplement osat > 90 incentive spirometery, wean off oxygen as tolerated zofran/Phenergan for nausea Wound care following for the wide excision biopsy. anticipate d/c tomorrow. DVT hep sq Medical - PN: Qual - VTE Deep Vein Thrombosis/Pulmonary Embolism Present on Admission: No
[2019-03-15] MEDS: HEPARIN 5,000 UNIT/ML VIAL SQ SCH ×2 (11:19→21:01)
--- NOTE | 2019-03-15 11:39 | General Surgery Progress Note ---
Subjective Patient reports: feels better, other Narrative: Note initiated : 03/15/19 at 11:37 am Service Date, if different from initiated Date: [] Patient: Karla Mccnonell 69 y/o F admitted on 03/14/19 for Wide Excision Right Anterior Thigh Wound. Chief Complaint: [] Uneventful night. S/P EGD and dilatation over a guide wire of Schatzki ring stricture distal esophagus. Biopsies of gastric erosions. Objective Temp Pulse Resp BP Pulse Ox 98.2 F 74 16 144/75 97 03/15/19 11:00 03/15/19 07:15 03/15/19 11:00 03/15/19 11:00 03/15/19 11:00 AVSS. No changes DHRUV. Anxious. Given Dilaudid. Dressing changed Right thigh: Surgical site is clean. NO bleeding. See wound care orders. Reviewed patient again during lunch time. She reports feeling well. Ambulating now. - Additional Data Intake & Output - Last 24 hours: Intake & Output 03/13/19 03/14/19 03/15/19 03/16/19 05:59 05:59 05:59 05:59 Intake Total 3350 850 251 151 Output Total 037 173 3158 Balance 2775 325 -1819 151 Weight 155 lb 3.2 oz 159 lb 160 lb 1.6 oz 160 lb 1.6 oz - Labs 03/15/19 04:15 03/15/19 04:15 Diabetes panel 03/15/19 Range/Units 04:15 Sodium 140 (133-145) mmol/L Potassium 4.4 (3.3-5.1) mmol/L Chloride 104 (96-108) mmol/L Carbon Dioxide 27 (22-30) mmol/L BUN 12 (8-23) mg/dl Creatinine 0.7 (0.6-1.1) mg/dl Glucose 106 H (70-105) mg/dL Calcium 8.7 (8.6-10.4) mg/dl AST 21 (0-37) U/l ALT 21 (0-40) U/l Alkaline Phosphatase 104 (39-117) U/L Total Protein 6.0 (5.9-8.4) gm/dL Albumin 3.6 (3.2-5.2) gm/dL Triglycerides 120 (<150) mg/dl Calcium panel 03/15/19 Range/Units 04:15 Calcium 8.7 (8.6-10.4) mg/dl Phosphorus 3.8 (2.7-4.5) mg/dL Albumin 3.6 (3.2-5.2) gm/dL Pituitary panel 03/15/19 Range/Units 04:15 Sodium 140 (133-145) mmol/L Potassium 4.4 (3.3-5.1) mmol/L Chloride 104 (96-108) mmol/L Carbon Dioxide 27 (22-30) mmol/L BUN 12 (8-23) mg/dl Creatinine 0.7 (0.6-1.1) mg/dl Glucose 106 H (70-105) mg/dL Calcium 8.7 (8.6-10.4) mg/dl Adrenal panel 03/15/19 Range/Units 04:15 Sodium 140 (133-145) mmol/L Potassium 4.4 (3.3-5.1) mmol/L Chloride 104 (96-108) mmol/L Carbon Dioxide 27 (22-30) mmol/L BUN 12 (8-23) mg/dl Creatinine 0.7 (0.6-1.1) mg/dl Glucose 106 H (70-105) mg/dL Calcium 8.7 (8.6-10.4) mg/dl Total Bilirubin 0.2 (0.0-1.0) mg/dL AST 21 (0-37) U/l ALT 21 (0-40) U/l Alkaline Phosphatase 104 (39-117) U/L Total Protein 6.0 (5.9-8.4) gm/dL Albumin 3.6 (3.2-5.2) gm/dL Assessment and Plan - Time Spent With Patient Total time spent is greater than 50% in coordination of care (as documented) at patient's floor/unit and/or counseling patient: Assessment: Satisfactory progress. Patient seen with Rebekah MORLEY. Wound Care Nurse. Spoke with Dr. Katelyn COLEMAN It Systems Analyst. EGD findings discussed. O K for patient to be discharged from wound care point of view. Plan: F/U at wound care center after discharge and dressing changes. GI / Medical &/or Pulmonary f/u per Hospitalist Physician. 25 - 35 minutes
--- NOTE | 2019-03-15 13:16 | Surgical Pathology Report ---
HISTOLOGY SPECIMEN MICROSCOPIC DIAGNOSIS SPECIMEN A - STOMACH, POLYPECTOMY: -- POLYPOID FRAGMENT OF GASTRIC BODY TYPE MUCOSA WITH MILDLY DILATED FUNDIC GLANDS COMPATIBLE WITH FUNDIC GLAND POLYP. -- NO DYSPLASIA OR MALIGNANCY IDENTIFIED. -- NO HELICOBACTER SPECIES IDENTIFIED ON ALCIAN YELLOW STAIN (ADEQUATE TECHNICAL CONTROL). SPECIMEN B - ESOPHAGUS, DISTAL, BIOPSY: -- SEVERELY ACTIVE ESOPHAGITIS WITH SQUAMOUS ULCERATION. -- NO FUNGAL ORGANISMS IDENTIFIED ON PAS STAIN (ADEQUATE TECHNICAL CONTROL). -- NO DYSPLASIA OR MALIGNANCY IDENTIFIED. -- GLANDULAR TYPE MUCOSA WITH NO DIAGNOSTIC ALTERATION. -- NO INTESTINAL METAPLASIA IDENTIFIED ON ALCIAN BLUE STAIN (ADEQUATE TECHNICAL CONTROL). (EBD:alban) CLINICAL HISTORY Dysphagia. PROCEDURAL IMPRESSION Schatzki's ring; hiatal hernia; GERD; erosive esophagitis; inlet patch. GROSS DESCRIPTION Specimen A: Received in formalin labeled gastric polyp, is a 0.2 cm puentes tissue fragment. Entirely submitted in one cassette. Specimen B: Received in formalin labeled esophageal biopsy, are four sy-puentes tissue fragments from 0.2 to 0.5 cm. Entirely submitted in one cassette. (SCB:adj) Electronically Signed by: Lana Garcia M.D.
[2019-03-15] MEDS: ONDANSETRON 4 MG/2 ML VIAL IV PRN (19:20)
[2019-03-15] MEDS: ATORVASTATIN 20 MG TABLET PO SCH (21:00)
[2019-03-16] MEDS: oxyCODONE/APAP 5/325MG TABLET PO PRN ×4 (04:12→20:22)
[2019-03-16] MEDS: PIPERACILLIN SODIUM/TAZOBACTAM 3.375 GM in DEXTROSE 5% IN WATER 50 ML IV SCH ×3 (05:54→17:08)
[2019-03-16] MEDS: 0.9 % SODIUM CHLORIDE 10 ML SYRINGE IV SCH ×2 (05:55→13:15)
[2019-03-16 06:19] LABS: Basophils # (Auto) 0 K/mcL (0.0-0.3); Basophils % (Auto) 0.4 % (0.0-2.0); Eosinophils # (Auto) 0.1 K/mcL (0.0-0.7); Eosinophils % (Auto) 1.8 % (0.0-7.0); Granulocytes % (Auto) 61.8 % (38.0-78.0); Hematocrit 33.7 % (36.0-48.0); Hemoglobin 11.2 g/dL (12.0-15.0); Lymphocytes # (Auto) 1.7 K/mcL (1.5-4.8); Mean Cell Volume 86.6 fL (80.0-100.0); Mean Corpuscular HGB Conc 33.2 g/dL (31.0-36.0); Mean Platelet Volume 9.9 fL (7.4-10.4); Monocytes # (Auto) 0.3 K/mcL (0.1-0.9); Platelet Count 198 K/mcL (140-440); WBC 5.7 K/mcL (4.5-11.0)
[2019-03-16 06:56] LABS: ALT/SGPT 23 U/l (0-40); AST/SGOT 19 U/l (0-37); Albumin 3.8 gm/dL (3.2-5.2); Albumin/Globulin Ratio 1.4 (1.0-2.3); Alkaline Phosphatase 112 U/L (39-117); Bilirubin,Direct < 0.2 mg/dL (0.0-0.3); Bilirubin,Total 0.2 mg/dL (0.0-1.0); Blood Urea Nitrogen 12 mg/dl (8-23); Calcium 9.3 mg/dl (8.6-10.4); Carbon Dioxide 26 mmol/L (22-30); Chloride 101 mmol/L (96-108); Gamma Glutamyl Transpeptidase 18 U/L (5-36); Globulin 2.8 gm/dL (2.2-3.7); Glomerular Filtration Rate 94; Glucose 102 mg/dL (70-105); Lactate Dehydrogenase 157 U/L (94-250); Phosphorous 3.9 mg/dL (2.7-4.5); Potassium 4.4 mmol/L (3.3-5.1); Sodium 138 mmol/L (133-145); Triglycerides 106 mg/dl (<150); Uric Acid 2.3 mg/dL (2.5-8.0)
[2019-03-16] MEDS: PANTOPRAZOLE 40 MG VIAL IV SCH ×2 (07:53→17:08)
[2019-03-16] MEDS: HEPARIN 5,000 UNIT/ML VIAL SQ SCH ×2 (09:29→20:21)
[2019-03-16] MEDS: DOCUSATE SODIUM 100 MG CAPSULE PO SCH ×2 (09:29→20:22)
[2019-03-16] MEDS: LOSARTAN 50 MG TABLET PO SCH ×2 (09:29→20:22)
[2019-03-16] MEDS: ASPIRIN 81 MG TAB.CHEW PO SCH (09:29)
[2019-03-16] MEDS: FAMOTIDINE 20 MG TABLET PO SCH ×2 (09:30→20:22)
--- NOTE | 2019-03-16 10:22 | General Surgery Progress Note ---
Subjective Patient reports: other Narrative: Note initiated : 03/16/19 at 10:19 am Service Date, if different from initiated Date: [] Patient: Karla Mcconnell 69 y/o F admitted on 03/14/19 for Wide Excision Right Anterior Thigh Wound. Chief Complaint: [] Making slow and steady progress. Less anxious. Eating better. Ambulating with FWW. Using IS 1500. Objective Temp Pulse Resp BP Pulse Ox 98.6 F 71 12 106/58 97 03/16/19 07:33 03/16/19 07:33 03/16/19 07:33 03/16/19 07:33 03/16/19 07:33 AVSS. No changes DHRUV. Dressing Right thigh is CDI. - Additional Data Intake & Output - Last 24 hours: Intake & Output 03/14/19 03/15/19 03/16/19 03/17/19 05:59 05:59 05:59 05:59 Intake Total 850 251 951 168 Output Total 525 2070 575 Balance 325 -1819 376 168 Weight 159 lb 160 lb 1.6 oz 151 lb 8 oz - Labs 03/16/19 04:08 03/16/19 04:08 Diabetes panel 03/16/19 Range/Units 04:08 Sodium 138 (133-145) mmol/L Potassium 4.4 (3.3-5.1) mmol/L Chloride 101 (96-108) mmol/L Carbon Dioxide 26 (22-30) mmol/L BUN 12 (8-23) mg/dl Creatinine 0.6 (0.6-1.1) mg/dl Glucose 102 (70-105) mg/dL Calcium 9.3 (8.6-10.4) mg/dl AST 19 (0-37) U/l ALT 23 (0-40) U/l Alkaline Phosphatase 112 (39-117) U/L Total Protein 6.6 (5.9-8.4) gm/dL Albumin 3.8 (3.2-5.2) gm/dL Triglycerides 106 (<150) mg/dl Calcium panel 03/16/19 Range/Units 04:08 Calcium 9.3 (8.6-10.4) mg/dl Phosphorus 3.9 (2.7-4.5) mg/dL Albumin 3.8 (3.2-5.2) gm/dL Pituitary panel 03/16/19 Range/Units 04:08 Sodium 138 (133-145) mmol/L Potassium 4.4 (3.3-5.1) mmol/L Chloride 101 (96-108) mmol/L Carbon Dioxide 26 (22-30) mmol/L BUN 12 (8-23) mg/dl Creatinine 0.6 (0.6-1.1) mg/dl Glucose 102 (70-105) mg/dL Calcium 9.3 (8.6-10.4) mg/dl Adrenal panel 03/16/19 Range/Units 04:08 Sodium 138 (133-145) mmol/L Potassium 4.4 (3.3-5.1) mmol/L Chloride 101 (96-108) mmol/L Carbon Dioxide 26 (22-30) mmol/L BUN 12 (8-23) mg/dl Creatinine 0.6 (0.6-1.1) mg/dl Glucose 102 (70-105) mg/dL Calcium 9.3 (8.6-10.4) mg/dl Total Bilirubin 0.2 (0.0-1.0) mg/dL AST 19 (0-37) U/l ALT 23 (0-40) U/l Alkaline Phosphatase 112 (39-117) U/L Total Protein 6.6 (5.9-8.4) gm/dL Albumin 3.8 (3.2-5.2) gm/dL Assessment and Plan - Time Spent With Patient Total time spent is greater than 50% in coordination of care (as documented) at patient's floor/unit and/or counseling patient: Assessment: Progressing well Patient seen with Rebekah MORLEY . Plan: Continue current treatment. OK to D/C from wound care point of view. F/U at wound care center after discharge/ less than 15 minutes
--- NOTE | 2019-03-16 10:38 | Internal Med Progress Note ---
Medical - PN: Subj Patient information: Note initiated : 03/16/19 at 10:35 am Service Date, if different from initiated Date: [] Patient: Karla Mcconnell a 69 y/o F admitted on 03/14/19 for Wide Excision Right Anterior Thigh Wound. Chief Complaint: [] Interval history: Ms. Mcconnell is a 69 year old F Who presented for elective wide excision of a nonhealing wound history of melanoma. On the a wide excision was made and biopsies were obtained. She did have some postoperative bleeding and wound was explored again and wound was washed out and dressings placed. States she had described a chest pressure and code white was obtained. EKG and first troponin unremarkable. She received several nitros with relief in pain however pain has returned. See the note per nurse. Patient described discomfort as elephant sitting on her chest but denied pain. I will speak with the patient states that she was just laying in her bed and when the nurse came into check vitals patient said she felt like she had elephant sitting on her chest. Symptoms have significantly subsided but she feels never quite gone away but very minimal at this time. Again she describes a pressure but not painful and it encompasses the entire anterior chest and does not radiate. She does states little worse with a deep breath or cough. Denies anything making it worse or better. Denies any change in symptoms with position. Does have history of pyrosis but she says it does not feel like that. She did have some chest pain several years ago and was worked up by her primary care provider Dr. Dubose which was unremarkable. 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 Regarding her cancer. She had a first biopsy in December which showed melanoma and then she had excision in the office by subsequently later she developed infection and was given some oral antibiotics from the ED. And then saw Dr. garvin in the cancer center which eventually led to her getting the surgical excision here. Patient seen examined, pt has no CP, no events on tele, trop neg CTA done last night shows patient has aspiration pneumonia. STarted on zosyn. BC sent Pt has history of dysphagia,solid foods getting stuck in mid chest, and going down slowly or coming back up, this has been going on for 3 yrs and she has been reluctant to have it checked out. she agrees for evaluation now. Will consult GI for EGD 03/15 Pt seen examined No acute issues reported, s/p EGD, doing well, she still has significant pain in the thigh, unable to bear weight, labs stable, off oxygen. Patient had EGD yesterday EGD report: Inlet patches were seen in the proximal esophagus. Erosions were seen in the distal esophagus. These were biopsied. At the esophagogastric junction, there was a Schatzki's ring narrowing the lumen significantly. A hiatal hernia was seen. A gastric polyp was seen in the stomach; this was removed with biopsy forceps technique and retrieved for histological examination.The gastric mucosa, antrum, pyloric ring, and duodenum appeared normal. A guidewire was inserted into the scope. The scope was then withdrawn, leaving the guidewire in place. The esophagus was dilated with an [place]an bougie 54 German. 03/16-patient started on diet post EGD. GI recommends follow-up on discharge. Clinically improving. Aspiration precautions/antibiotic coverage. Anticipate discharge in 24 hours. Daughter at bedside. No overnight events. Was slightly drowsy early this morning after Dilaudid which has been discontinued. Off oxygen. Daughter requesting walker on discharge. Ongoing physical therapy/dentition support - Constitutional Vitals: Vital Signs Temp Pulse Resp BP Pulse Ox 98.6 F 71 12 106/58 96 03/16/19 07:33 03/16/19 07:33 03/16/19 07:33 03/16/19 07:33 03/16/19 10:00 Period Temp Pulse Resp BP Sys/Garcia Pulse Ox Last 24 Hr 98.2 F-99.0 F 70-80 12-16 102-144/58-75 92-97 Intake and Output 03/15/19 03/16/19 03/16/19 21:59 05:59 13:59 Intake Total 300 200 168 Output Total 575 250 Balance 300 -375 -82 Weight 151 lb 8 oz Intake & Output: Intake & Output 03/15/19 03/16/19 03/16/19 21:59 05:59 13:59 Intake Total 300 200 168 Output Total 575 250 Balance 300 -375 -82 Weight 151 lb 8 oz Intake: IV 100 50 50 Zosyn 3.375 gm In Dextrose 5% 100 50 50 in Water 50 ml @ 100 mls/hr IV Q6H [facility] Rx#:[id number] Oral 200 150 118 Output: Void Amount 575 250 Other: Meal apple sauce cup Percent of Meal Consumed 100% Feeding Ability Independent Urine Appearance Clear Clear Urine Color Bright Yellow Dark Yellow Urine Odor Normal # Unmeasured Emesis 1 General appearance: no acute distress Exam: Alert oriented Nonlabored breathing No anxiety Nondistended abdomen Sitting on chair Medical - PN: Obj Da - Labs CBC & Chem 7: 03/16/19 04:08 03/16/19 04:08 Labs: Abnormal Lab Results 03/16/19 03/16/19 03/15/19 04:08 04:08 04:15 RBC 3.90 L Hgb 11.2 L Hct 33.7 L RDW Glucose 106 H Uric Acid 2.3 L 03/15/19 03/14/19 03/14/19 04:15 03:24 03:24 RBC 3.65 L 3.64 L Hgb 10.4 L 10.4 L Hct 31.9 L 32.0 L RDW 14.6 H Glucose 111 H Uric Acid Meds: Medications Al Hydrox/Mg Hydrox/Simethicone (Maalox) 30 ml PO Q4-6HP PRN PRN Reason: Dyspepsia Albuterol/Ipratropium (Duoneb) 3 ml NEB Q4HP PRN PRN Reason: Shortness Of Breath Aspirin (Aspirin) 81 mg PO DAILY [facility] Last Admin: 03/16/19 09:29 Dose: 81 mg Documented by: Atorvastatin Calcium (Lipitor) 10 mg PO HS [facility] Last Admin: 03/15/19 21:00 Dose: 10 mg Documented by: Calcium Carbonate/Glycine (Tums) 1,000 mg CHEWED Q4HP PRN PRN Reason: Dyspepsia Docusate Sodium (Colace) 100 mg PO BID [facility] Last Admin: 03/16/19 09:29 Dose: 100 mg Documented by: Famotidine (Pepcid) 20 mg PO BID [facility] Last Admin: 03/16/19 09:30 Dose: 20 mg Documented by: Heparin Sodium (Porcine) (Heparin) 5,000 unit SQ Q12 [facility] Last Admin: 03/16/19 09:29 Dose: 5,000 unit Documented by: Hydromorphone HCl (Dilaudid) 1 mg IV Q2HP PRN PRN Reason: PAIN LEVEL > 6 Last Admin: 03/15/19 18:29 Dose: 1 mg Documented by: Potassium Chloride 40 meq/ (Dextrose) 520 mls @ 130 mls/hr IV UD PRN PRN Reason: Potassium < 3 Magnesium Sulfate (Magnesium Sulfate) 2 gm in 50 mls @ 50 mls/hr IV UD PRN PRN Reason: Magnesium </= 1.6 Sodium Chloride (Sodium Chloride 0.9%) 1,000 mls @ 0 mls/hr IV .Q0M [facility] Piperacillin Sod/Tazobactam (Sod 3.375 gm/ Dextrose) 50 mls @ 100 mls/hr IV Q6H [facility]; Protocol Last Infusion: 03/16/19 06:38 Dose: Infused Documented by: Lactulose (Cephulac) 10 gm PO DAILYP PRN PRN Reason: Constipation Losartan Potassium (Cozaar) 50 mg PO BID [facility] Last Admin: 03/16/19 09:29 Dose: 50 mg Documented by: Nitroglycerin (Nitrostat) 0.4 mg SL Q5M PRN PRN Reason: Chest Pain Ondansetron HCl (Zofran) 4 mg IV Q6HP PRN PRN Reason: Nausea And Vomiting Last Admin: 03/15/19 19:20 Dose: 4 mg Documented by: Oxycodone/Acetaminophen (Percocet 5-325 Mg) 1 - 2 tab PO Q4HP PRN PRN Reason: PAIN LEVEL 3-6 Last Admin: 03/16/19 09:00 Dose: 1 tab Documented by: Pantoprazole Sodium (Protonix) 40 mg IV BIDAC [facility] Last Admin: 03/16/19 07:53 Dose: 40 mg Documented by: Polyethylene Glycol (Miralax) 17 gm PO DAILYP PRN PRN Reason: Constipation Last Admin: 03/16/19 09:30 Dose: 17 gm Documented by: Potassium Chloride (Kdur) 40 meq PO UD PRN PRN Reason: Potssium is 3-3.5 Potassium Chloride (Kdur) 40 meq PO UD PRN PRN Reason: Potassium < 3 Promethazine HCl (Phenergan) 12.5 mg IV Q4HP PRN PRN Reason: Nausea And Vomiting Senna (Senokot) 2 tab PO HSP PRN PRN Reason: Constipation Sodium Chloride (Saline Flush) 10 ml IV Q8 [facility] Last Admin: 03/16/19 05:55 Dose: 10 ml Documented by: Throat Lozenges (Cepacol) 1 lozenge PO PRN PRN PRN Reason: Sore Throat Zolpidem Tartrate (Ambien) 5 mg PO HSP PRN PRN Reason: Insomnia Medical - PN: A/P - Time Spent With Patient Total time spent is greater than 50% in coordination of care (as documented) at patient's floor/unit and/or counseling patient: 25 - 35 minutes - Narrative A/P Narrative: * Aspiration pneumonia clinically improving on antibiotic coverage. Continue aspiration precautions/diet per ST recommendations * Hypoxic respiratory failure resolved currently in room air * Status post reexploration right thigh postoperative bleeding progressing well and managed by wound care dr fowler * Dysphagia secondary to Schatzki ring with erosive esophagitis status post EGD by GI * History of hypertension continue losartan * Hyperlipidemia continue statin * GERD on Pepcid * History of melanoma status post wide excision skin lesion. * Prophylaxis heparin Plan * Possible discharge on oral antibiotics in 24 hours * Continue PT OT nutritional support * Pre-existing medical condition management on home meds as above * Outpatient GI follow-up for Schatzki ring with [facility] - PN: Qual - VTE Deep Vein Thrombosis/Pulmonary Embolism Present on Admission: No
[2019-03-16] MEDS: THIAMINE 100 MG in 0.9 % SODIUM CHLORIDE 50 ML IV SCH (11:13)
[2019-03-16] MEDS: ATORVASTATIN 20 MG TABLET PO SCH (20:22)
[2019-03-17] MEDS: PIPERACILLIN SODIUM/TAZOBACTAM 3.375 GM in DEXTROSE 5% IN WATER 50 ML IV SCH ×2 (00:47→05:49)
[2019-03-17] MEDS: oxyCODONE/APAP 5/325MG TABLET PO PRN ×2 (00:49→07:07)
[2019-03-17] MEDS: 0.9 % SODIUM CHLORIDE 10 ML SYRINGE IV SCH ×4 (01:36→07:07)
[2019-03-17 05:45] LABS: Basophils # (Auto) 0 K/mcL (0.0-0.3); Basophils % (Auto) 0.4 % (0.0-2.0); Eosinophils # (Auto) 0.2 K/mcL (0.0-0.7); Eosinophils % (Auto) 3.5 % (0.0-7.0); Granulocytes % (Auto) 64.9 % (38.0-78.0); Hematocrit 31.3 % (36.0-48.0); Hemoglobin 10.2 g/dL (12.0-15.0); Lymphocytes # (Auto) 1.3 K/mcL (1.5-4.8); Lymphocytes % (Auto) 25.4 % (15.5-49.0); Mean Corpuscular HGB Conc 32.6 g/dL (31.0-36.0); Mean Platelet Volume 9.5 fL (7.4-10.4); Monocytes # (Auto) 0.3 K/mcL (0.1-0.9); Monocytes % (Auto) 5.8 % (1.0-12.0); Platelet Count 177 K/mcL (140-440); Red Cell Distribution Width 13.9 % (11.5-14.5); WBC 5.1 K/mcL (4.5-11.0)
[2019-03-17 06:11] LABS: ALT/SGPT 19 U/l (0-40); AST/SGOT 16 U/l (0-37); Albumin 3.5 gm/dL (3.2-5.2); Albumin/Globulin Ratio 1.4 (1.0-2.3); Alkaline Phosphatase 103 U/L (39-117); Bilirubin,Direct < 0.2 mg/dL (0.0-0.3); Bilirubin,Total 0.2 mg/dL (0.0-1.0); Blood Urea Nitrogen 12 mg/dl (8-23); Calcium 8.8 mg/dl (8.6-10.4); Carbon Dioxide 23 mmol/L (22-30); Chloride 107 mmol/L (96-108); Gamma Glutamyl Transpeptidase 17 U/L (5-36); Globulin 2.5 gm/dL (2.2-3.7); Glomerular Filtration Rate 94; Glucose 112 mg/dL (70-105); Lactate Dehydrogenase 159 U/L (94-250); Magnesium 1.8 mg/dL (1.6-2.5); Phosphorous 3.2 mg/dL (2.7-4.5); Potassium 4.1 mmol/L (3.3-5.1); Sodium 141 mmol/L (133-145); Triglycerides 84 mg/dl (<150); Uric Acid 2.4 mg/dL (2.5-8.0)
[2019-03-17] MEDS: PANTOPRAZOLE 40 MG VIAL IV SCH (07:06)
[2019-03-17] MEDS: ASPIRIN 81 MG TAB.CHEW PO SCH (09:00)
[2019-03-17] MEDS: LOSARTAN 50 MG TABLET PO SCH (09:01)
[2019-03-17] MEDS: FAMOTIDINE 20 MG TABLET PO SCH (09:01)
[2019-03-17] MEDS: DOCUSATE SODIUM 100 MG CAPSULE PO SCH (09:01)
[2019-03-17] MEDS: HEPARIN 5,000 UNIT/ML VIAL SQ SCH (09:01)
--- NOTE | 2019-03-17 11:46 | Discharge Summary ---
Medical - DS: Prov Patient information: Note initiated : 03/17/19 at 11:41 am Service Date, if different from initiated Date: [] Patient: Karla Mcconnell 69 y/o F admitted on 03/14/19 for Wide Excision Right Anterior Thigh Wound. Chief Complaint: [] Date of admission: 03/14/19 10:23 Discharge date: 03/17/19 Primary care physician: Lamar Jenkins Consults: 03/13/19 08:22 Consult to Physician [CONS] Stat Comment: Consulting Provider: Santosh Jose Reason For Exam: Physician to Consult 03/14/19 10:22 Consult to Physician [CONS] Routine Comment: Consulting Provider: Licha Wiseman Reason For Exam: Physician to Consult Medical - DS: Meds - Discharge Medications Prescriptions: Amoxicillin/Potassium Clav [Augmentin] 875 mg PO Q12H #8 tab Active and Home Medications: Home Medications Atorvastatin [Lipitor] 10 mg PO HS 03/02/19 [History Confirmed 03/09/19 Last Taken 03/11/19] Famotidine [Pepcid] 20 mg PO BID 03/02/19 [History Confirmed 03/09/19 Last Taken 03/11/19] Losartan [Cozaar] 50 mg PO BID 03/02/19 [History Confirmed 03/12/19 Last Taken 03/12/19] Amoxicillin/Potassium Clav [Augmentin] 875 mg PO Q12H #8 tab 03/17/19 [Rx Last Taken Unknown] Medical - DS: Hosp Hospital course: Discharge diagnosis * Aspiration pneumonia clinically improving on antibiotic coverage. Continue aspiration precaution additional 5 days of oral Augmentin * Hypoxic respiratory failure -clinically resolved currently in room air * Status post reexploration right thigh postoperative bleeding progressing well and managed by wound care dr cyr. Wound care as outpatient follow-up * Dysphagia secondary to Schatzki ring with erosive esophagitis status post EGD by GI. Will follow outpatient with [facility], * History of hypertension continue losartan * Hyperlipidemia continue statin * GERD on Pepcid * History of melanoma status post wide excision skin lesion. Brief hospital course Ms. Mcconnell is a 69 year old F Who presented for elective wide excision of a nonhealing wound history of melanoma. On the a wide excision was made and biopsies were obtained. She did have some postoperative bleeding and wound was explored again and wound was washed out and dressings placed. States she had described a chest pressure and code white was obtained. EKG and first troponin unremarkable. She received several nitros with relief in pain however pain has returned. See the note per nurse. Patient described discomfort as elephant sitting on her chest but denied pain. I will speak with the patient states that she was just laying in her bed and when the nurse came into check vitals patient said she felt like she had elephant sitting on her chest. Symptoms have significantly subsided but she feels never quite gone away but very minimal at this time. Again she describes a pressure but not painful and it encompasses the entire anterior chest and does not radiate. She does states little worse with a deep breath or cough. Denies anything making it worse or better. Denies any change in symptoms with position. Does have history of pyrosis but she says it does not feel like that. She did have some chest pain several years ago and was worked up by her primary care provider Dr. Dubose which was unremarkable. 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 Regarding her cancer. She had a first biopsy in December which showed melanoma and then she had excision in the office by subsequently later she developed infection and was given some oral antibiotics from the ED. And then saw Dr. garvin in the cancer center which eventually led to her getting the surgical excision here. Patient seen examined, pt has no CP, no events on tele, trop neg CTA done last night shows patient has aspiration pneumonia. STarted on zosyn. BC sent Pt has history of dysphagia,solid foods getting stuck in mid chest, and going down slowly or coming back up, this has been going on for 3 yrs and she has been reluctant to have it checked out. she agrees for evaluation now. Will consult GI for EGD 03/15 Pt seen examined No acute issues reported, s/p EGD, doing well, she still has significant pain in the thigh, unable to bear weight, labs stable, off oxygen. Patient had EGD yesterday EGD report: Inlet patches were seen in the proximal esophagus. Erosions were seen in the distal esophagus. These were biopsied. At the esophagogastric junction, there was a Schatzki's ring narrowing the lumen significantly. A hiatal hernia was seen. A gastric polyp was seen in the stomach; this was removed with biopsy forceps technique and retrieved for histological examination.The gastric mucosa, antrum, pyloric ring, and duodenum appeared normal. A guidewire was inserted into the scope. The scope was then withdrawn, leaving the guidewire in place. The esophagus was dilated with an [place]an bougie 54 Armenian. 03/16-patient started on diet post EGD. GI recommends follow-up on discharge. Clinically improving. Aspiration precautions/antibiotic coverage. Anticipate discharge in 24 hours. Daughter at bedside. No overnight events. Was slightly drowsy early this morning after Dilaudid which has been discontinued. Off oxygen. Daughter requesting walker on discharge. Ongoing physical therapy/dentition support 03/17-patient doing well. No overnight events. wound care signed off and recommended outpatient follow-up with wound care clinic. Continue Augmentin for 5 Days. No further bleeding from right thigh wound. No overnight fever chills or concerns per staff. Was able to participate in physical therapy. Detailed discharge instructions as below. Discharge diagnosis: . - Time Spent with Patient Total time spent providing and/or coordinating discharge services: Greater than 30 minutes Medical - DS: Exam - Constitutional Vitals: Vital Signs Temp Pulse Resp BP Pulse Ox 03/17/19 10:00 94 03/17/19 08:00 97.4 F 16 119/70 95 03/17/19 03:59 98.3 F 65 16 125/69 90 03/16/19 23:45 98 F 66 14 123/67 94 03/16/19 19:45 98.4 F 76 16 152/72 03/16/19 16:15 97.7 F 73 18 117/66 92 Intake and Output 03/16/19 03/17/19 03/17/19 21:59 05:59 13:59 Intake Total 1570 150 400 Output Total 300 400 1 Balance 1270 -250 399 Intake: IV 50 50 50 Zosyn 3.375 gm In Dextrose 5% 50 50 50 in Water 50 ml @ 100 mls/hr IV Q6H [facility] Rx#:[id number] Oral 1520 100 350 Output: Void Amount 300 400 Stool 1 Other: Meal Dinner Breakfast Percent of Meal Consumed Refused 90 Feeding Ability Independent Independent Urine Appearance Clear Urine Color Bright Yellow Pale Urine Odor Normal Normal # Voids 1 Weight 151 lb Medical - DS: Data Labs on day of discharge: Labs from last 24 hours 03/17/19 03/17/19 04:05 04:05 WBC 5.1 RBC 3.60 L Hgb 10.2 L Hct 31.3 L MCV 87.0 MCH 28.3 MCHC 32.6 RDW 13.9 Plt Count 177 MPV 9.5 Gran % 64.9 Lymph % (Auto) 25.4 [place] % (Auto) 5.8 Eos % (Auto) 3.5 Baso % (Auto) 0.4 Gran # 3.3 Lymph # (Auto) 1.3 L [place] # (Auto) 0.3 Eos # (Auto) 0.2 Baso # (Auto) 0 Sodium 141 Potassium 4.1 Chloride 107 Carbon Dioxide 23 Anion Gap 11.0 BUN 12 Creatinine 0.6 GFR Calculation 94 Glucose 112 H Uric Acid 2.4 L Calcium 8.8 Phosphorus 3.2 Magnesium 1.8 Total Bilirubin 0.2 Direct Bilirubin < 0.2 GGT 17 AST 16 ALT 19 Alkaline Phosphatase 103 Lactate Dehydrogenase 159 Total Protein 6.0 Albumin 3.5 Globulin 2.5 Albumin/Globulin Ratio 1.4 Triglycerides 84 Preliminary micro results at discharge 03/13/19 21:04 Blood Culture - Preliminary Blood 03/13/19 20:51 Blood Culture - Preliminary Blood Medical - DS: A/P - Patient/Caregiver Discharge Instructions Activity: increase activity as tolerated Diet: Regular Diet Additional Instructions: Follow-up PCP in 5 days Follow-up [facility] Wiseman in 2 weeks Follow-up with wound care clinic Dr. Cyr I recommend primary care physician to check CBC BMP UA as a posthospital follow- up Antibiotics for an additional 5 days Continue aggressive bowel regimen to prevent constipation Continue fall precautions All meals on chair sitting upright at 90 degrees to prevent aspiration Return to ER if worsening fever chills shortness of breath, diarrhea, bleeding Review risk and side effect profile of medications including antibiotics. Side effect may include mild to severe reaction including rash, diarrhea, cdiff and even which can be prevented by close follow-up with PCP and monitoring for side effects Refrain from smoking and alcohol Continue diet and activity as advised Discussed importance of medication adherence Please review medication list with patient prior to discharge Please schedule follow-up with PCP/Providers prior to discharge and provide printouts Prescriptions: Amoxicillin/Potassium Clav [Augmentin] 875 mg PO Q12H #8 tab - Follow up Plan Follow up with: Carla Denson ARNP [Nurse Practitioner] - 03/20/19 8:20 am Disposition: Home, Self-Care Prognosis: Fair Rehab Potential: Fair I certify that the patient requires SNF services: No Overall status at discharge: patient is progressing back to baseline Medical - DS: Qual - VTE Deep Vein Thrombosis/Pulmonary Embolism Present on Admission: No
[2019-03-17] MEDS ORDERED: AMOXICILLIN/POTASSIUM CLAV 875 MG TABLET PO ONE (11:47)
== END 2019-03-17 13:25 | disposition home or self-care (01) | DRG 901 ==
LOC: MEDSUR 06:08 → SUR 06:08 → MEDSUR 14:06 → ICU 03-13 10:27 → MEDSUR 03-14 16:10
PROVIDERS: ADMIT Internal Medicine; ATTEND Internal Medicine
PROC: IDWOUND (2019-03-12 15:42)